=== PATIENT | male | born 1975 | race Caucasian/White ===

== ENCOUNTER → 2016-08-29 | Outpatient (CLI) | payer OTHER ==
[~2016-08-29] MED LIST: ALBUTEROL MDI
[2016-08-29 13:19] LABS: BASO % 0.3 %; BASO ABS # 0.02 K/uL (0-0.2); COMPLETE YES; HEMATOCRIT 41.7 % (42-52); IG% 0.6 %; LYMPH % 25.7 %; LYMPH ABS # 1.76 K/uL (1.2-3.4); MEAN CELL VOLUME 87.2 fL (80-100); MEAN CORPUSCULAR HEMOGLOBIN 27.8 pg (25-34); MEAN CORPUSCULAR HGB CONC 31.9 g/dl (32-36); MEAN PLATELET VOLUME 9.6 fL (7.4-10.4); NEUT % 65.4 %; PLATELET COUNT 384 K/uL (130-400); RED BLOOD COUNT 4.78 M/uL (4.7-6.1); WHITE BLOOD COUNT 6.84 K/uL (4.8-10.8)
[2016-08-29 15:05] LABS: CALCIUM 9.2 mg/dl (8.5-10.1)
[2016-08-29 15:18] LABS: BLOOD UREA NITROGEN 13 mg/dl (7-18); BUN/CREATININE RATIO 12.1 (10-20); CARBON DIOXIDE 26 mmol/L (21-32); CHLORIDE 107 mmol/L (98-107); GLUCOSE 139 mg/dl (70-99); POTASSIUM 4.2 mmol/L (3.5-5.1); SODIUM 141 mmol/L (136-145); URIC ACID 7.8 mg/dl (2.6-7.2)
== END | disposition home or self-care (01) ==
LOC: C.LABBC 11:06
PROVIDERS: ATTEND Family Medicine
DX: M10.9 Gout, unspecified (principal)

== ENCOUNTER 2021-02-04 11:14 | Inpatient (IN) ==
--- NOTE | 2021-02-04 13:28 | Emergency Department Note ---
Impression & Plan Chronic ulcer of right foot, Cellulitis of right foot, Acute osteomyelitis of right foot ED Provider Note CHIEF COMPLAINT: Right foot infection HISTORY OF PRESENTING ILLNESS: This is a 45-year-old male who presents to the emergency department by private vehicle with complaint of a right foot infection. 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 For the past 2-3 days, he has started to have increased pain, swelling, and redness of the foot extending up towards his ankle. His doctor sent him in for an MRI of the foot with concerns for osteomyelitis and also cellulitis. The patient is not diabetic. He states he believes the wound on his foot is from the area of rubbing and it just has not ever healed. He denies any fevers or chills. He is not currently on any antibiotics. He denies any chest pain, chest tightness, shortness of breath, back pain, abdominal pain, nausea/vomiting, diarrhea, urinary complaints, or unusual rash. REVIEW OF SYSTEMS: A complete 10 point review of systems was reviewed with the patient with pertinent positives and negatives as per history of present illness. All else were negative. PAST MEDICAL HISTORY: Hypertension, obesity, history of gout SOCIAL HISTORY: Lives at home, he denies tobacco use ALLERGIES: Reviewed in chart and with the patient PHYSICAL EXAM: CONSTITUTIONAL: Pleasant and cooperative. Nontoxic-appearing and in no acute distress. Well appearing and well nourished. HEENT: Normocephalic, atraumatic. NECK: Supple, full active range of motion without discomfort. RESPIRATORY: Clear to auscultation bilaterally with no wheezing, crackles, rhonchi or stridor. Equal expansion bilaterally. CARDIOVASCULAR: Regular rate and rhythm with no murmurs, rubs or gallops. Normal peripheral perfusion. No edema. GASTROINTESTINAL: Soft, nontender, nondistended. Obese abdomen. No palpable masses or HSM. Bowel sounds present in all quadrants. MUSCULOSKELETAL: Diffuse swelling of the right foot and ankle. No swelling or tenderness extending into the calf, no pain of the knee or hip. INTEGUMENTARY: There is a deep ulcerated wound on the lateral-plantar aspect of the right foot at the base of the fifth toe. There is foul-smelling yellowish discharge from the wound. The entire dorsal aspect of the foot is edematous, erythematous, and warm to the touch. Tender to palpation throughout. Swelling does extend up through the ankle, but there is not tenderness of the ankle joint. No rashes noted. NEUROLOGIC: Alert and oriented X 4 with normal affect. Normal strength and sensation in all 4 extremities. Normal speech. Normal gait observed. ED COURSE AND MEDICAL DECISION MAKING: CC: Patient presenting with complaint of right foot infection DIFFERENTIAL DIAGNOSIS: Includes, but not limited to cellulitis, abscess, MRSA infection, osteomyelitis, joint infection, necrotizing fasciitis, dermatitis, allergic reaction, as well as other pathologies. INTERPRETATION OF LABS: No leukocytosis, mild anemia, elevated platelets, no significant electrolyte abnormalities, normal renal function, normal liver enzymes. ESR and CRP are elevated. Lactate within normal limits. Coagulation factors within normal limits. SARS-CoV-2 PCR negative. MEDICATION RECONCILIATION: I attest that I have personally reviewed the patient's current medication list. INITIAL VITAL SIGNS REVIEW: I reviewed the patient's initial vital signs and interpret them as follows: T: Afebrile; BP: Normotensive; HR: Within normal limits; RR: Within normal limits; Pulse Ox: Within normal limits on room air. MDM SUMMARY: Patient was evaluated at bedside, history and physical exam performed. Patient is alert and oriented, in no acute distress, resting calmly in stretcher. He is afebrile and nontoxic-appearing. Right foot and ankle are diffusely swollen, erythematous, tender to palpation, and warm to the touch. There is an ulcerated wound on the lateral aspect of the foot with foul-smelling discharge. Cardiac monitoring: An order was placed for continuous cardiac monitoring. The monitor shows a rate of 82 bpm with normal sinus rhythm. MRI imaging of the right foot was performed earlier today, the results of this were reviewed noting findings consistent with osteomyelitis of the head of the fifth metatarsal and base of the fifth toe proximal phalanx as well as a loculated fluid collection and joint effusion of the fifth MTP joint concerning for septic arthritis and abscess. Orders were placed for labs including inflammatory markers, lactate, blood cultures x2, surface wound culture was collected from the ulcer, and orders were placed for IV vancomycin and cefepime to treat for osteomyelitis infection. The patient was offered something for pain, he declines at this time. Patient discussed with Dr. Mely, who agrees with my assessment, plan, and disposition. Labs reviewed as above, no leukocytosis and lactate is within normal limits. Inflammatory markers are elevated. I spoke on the phone with Dr. Henry, orthopedic surgeon, who recommended admitting the patient to medicine for management and agrees to evaluate available for consult. He agreed with starting IV antibiotic treatment at this time. I spoke on the phone with Dr. Bianchi, [facility] Hospitalist, who agrees to evaluate the patient for admission. Additional coverage with IV Flagyl was ordered per his request. Patient reassessed multiple times throughout ED stay, he has remained hemodynamically stable and afebrile, and continues to decline anything for pain. Patient and his were updated on all results and plan for admission, all questions were answered to the best my ability and the patient was agreeable to this plan. The patient was stable at time of admission. The chart was completed utilizing [employer] Speech voice recognition software. Grammatical errors, random word insertions, pronoun errors, and incomplete sentences are an occasional consequence of this system due to software limitations, ambient noise, and hardware issues. Any formal questions or concerns about the content, text, or information contained within the body of this dictation should be directly addressed to the nurse practitioner for clarification. 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 marital status: Current Living Situation: Spouse current occupational status: employed Feels Safe at Home: Yes Childhood Exposure to Second-Hand Smoke: Yes caffeine: Yes Dental Care, Regularly: Yes Physical Activity Frequency: Does not Exercise Seatbelt Use: always Sunscreen Use: Yes Do you think of yourself as: straight/heterosexual Allergies Allergies Allergy/AdvReac Type Severity Reaction Status Date / Time azithromycin Allergy Intermediate HIVES Verified 02/04/21 15:10 Sulfa (Sulfonamide Allergy Intermediate HIVES Verified 02/04/21 15:10 Antibiotics) Home Meds Previous Rx's Medication Instructions Recorded allopurinol 100 mg tablet 100 mg PO DAILY #30 tab 05/03/20 losartan 25 mg tablet 25 mg PO DAILY #90 tab 11/10/20 indomethacin 25 mg capsule 25 mg PO TID PRN #30 cap 01/13/21 Results & Data (ED) Vital Signs Vital Signs - 24 hr 02/04/21 11:26 02/04/21 13:20 02/04/21 13:22 Temperature 37.7 C H 37.2 C Temperature Source Oral Oral Pulse Rate 90 Pulse Rate [Left Finger] 72 Pulse Rate from SpO2 Sensor Respiratory Rate 18 13 Respiratory Effort / Characteristics Non-Labored Blood Pressure 123/71 Blood Pressure [Left Arm] 152/89 H Blood Pressure Mean 88 Blood Pressure Mean [Left Arm] 110 Pulse Oximetry 97 97 Oxygen Delivery Method Room Air Sepsis Recent Fever Within 48 Hours No Sepsis New/Unexplained Change in Mental Status No Sepsis Action Taken by Nursing No Action Required 02/04/21 14:57 Temperature Temperature Source Pulse Rate 71 Pulse Rate [Left Finger] Pulse Rate from SpO2 Sensor 71 Respiratory Rate 19 Respiratory Effort / Characteristics Blood Pressure 155/111 H Blood Pressure [Left Arm] Blood Pressure Mean 125 Blood Pressure Mean [Left Arm] Pulse Oximetry 98 Oxygen Delivery Method Sepsis Recent Fever Within 48 Hours Sepsis New/Unexplained Change in Mental Status Sepsis Action Taken by Nursing Laboratory Data Result diagrams: 02/04/21 13:47 02/04/21 13:47 Lab Results 02/04/21 02/04/21 02/04/21 Range/Units 13:47 13:47 13:47 WBC 8.62 (4.8-10.8) K/uL RBC 4.72 (4.7-6.1) M/uL Hgb 12.6 L (14.0-18.0) g/dL Hct 39.3 L (42-52) % MCV 83.3 (80-100) fL MCH 26.7 (25-34) pg MCHC 32.1 (32-36) g/dL RDW Std Deviation 42.2 (36.4-46.3) fL RDW Coeff of Sharda 13.8 (11.5-14.5) % Plt Count 494 H (130-400) K/uL MPV 8.7 (7.4-10.4) fL Immature Gran % (Auto) 0.2 % Neut % (Auto) 68.0 % Lymph % (Auto) 23.0 % Monroe % (Auto) 7.7 % Eos % (Auto) 0.8 % Baso % (Auto) 0.3 % Neut # (Auto) 5.86 (1.4-6.5) K/uL Lymph # (Auto) 1.98 (1.2-3.4) K/uL Monroe # (Auto) 0.66 H (0.11-0.59) K/uL Eos # (Auto) 0.07 (0-0.5) K/uL Baso # (Auto) 0.03 (0-0.2) K/uL Immature Gran # (Auto) 0.02 (0.00-0.02) K/uL ESR (0-15) mm/hr PT 10.1 (9.0-12.0) Seconds INR 1.0 (0.9-1.1) Sodium 137 (136-145) mmol/L Potassium 3.9 (3.5-5.1) mmol/L Chloride 105 (98-107) mmol/L Carbon Dioxide 26 (21-32) mmol/L Anion Gap 6.0 (3-11) BUN 14 (7-18) mg/dl Creatinine 1.02 (0.6-1.4) mg/dl Est Cr Clr Drug Dosing 141.4 ml/min Est GFR ( Amer) 103.1 ml/min Est GFR (Non-Af Amer) 89.0 ml/min BUN/Creatinine Ratio 13.2 (10-20) Glucose 96 (70-99) mg/dl Lactate (0.4-2.0) mmol/L Calcium 9.2 (8.5-10.1) mg/dl Total Bilirubin 0.5 (0.2-1) mg/dl AST 12 L (15-37) U/L ALT 24 (12-78) U/L Alkaline Phosphatase 63 (45-117) U/L C-Reactive Protein 6.07 H (0-0.29) mg/dl Total Protein 8.0 (6.4-8.2) gm/dl Albumin 3.4 (3.4-5.0) gm/dl Globulin 4.6 H (2.5-4.0) gm/dl Albumin/Globulin Ratio 0.7 L (0.9-2) COVID-19 Eval Order SARS-CoV-2 (PCR) (Negative) 02/04/21 02/04/21 02/04/21 Range/Units 13:47 13:47 14:18 WBC (4.8-10.8) K/uL RBC (4.7-6.1) M/uL Hgb (14.0-18.0) g/dL Hct (42-52) % MCV (80-100) fL MCH (25-34) pg MCHC (32-36) g/dL RDW Std Deviation (36.4-46.3) fL RDW Coeff of Sharda (11.5-14.5) % Plt Count (130-400) K/uL MPV (7.4-10.4) fL Immature Gran % (Auto) % Neut % (Auto) % Lymph % (Auto) % Monroe % (Auto) % Eos % (Auto) % Baso % (Auto) % Neut # (Auto) (1.4-6.5) K/uL Lymph # (Auto) (1.2-3.4) K/uL Monroe # (Auto) (0.11-0.59) K/uL Eos # (Auto) (0-0.5) K/uL Baso # (Auto) (0-0.2) K/uL Immature Gran # (Auto) (0.00-0.02) K/uL ESR 74 H (0-15) mm/hr PT (9.0-12.0) Seconds INR (0.9-1.1) Sodium (136-145) mmol/L Potassium (3.5-5.1) mmol/L Chloride (98-107) mmol/L Carbon Dioxide (21-32) mmol/L Anion Gap (3-11) BUN (7-18) mg/dl Creatinine (0.6-1.4) mg/dl Est Cr Clr Drug Dosing ml/min Est GFR ( Amer) ml/min Est GFR (Non-Af Amer) ml/min BUN/Creatinine Ratio (10-20) Glucose (70-99) mg/dl Lactate 0.9 (0.4-2.0) mmol/L Calcium (8.5-10.1) mg/dl Total Bilirubin (0.2-1) mg/dl AST (15-37) U/L ALT (12-78) U/L Alkaline Phosphatase (45-117) U/L C-Reactive Protein (0-0.29) mg/dl Total Protein (6.4-8.2) gm/dl Albumin (3.4-5.0) gm/dl Globulin (2.5-4.0) gm/dl Albumin/Globulin Ratio (0.9-2) COVID-19 Eval Order Covid19 at [facility] SARS-CoV-2 (PCR) (Negative) 02/04/21 Range/Units 14:18 WBC (4.8-10.8) K/uL RBC (4.7-6.1) M/uL Hgb (14.0-18.0) g/dL Hct (42-52) % MCV (80-100) fL MCH (25-34) pg MCHC (32-36) g/dL RDW Std Deviation (36.4-46.3) fL RDW Coeff of Sharda (11.5-14.5) % Plt Count (130-400) K/uL MPV (7.4-10.4) fL Immature Gran % (Auto) % Neut % (Auto) % Lymph % (Auto) % Monroe % (Auto) % Eos % (Auto) % Baso % (Auto) % Neut # (Auto) (1.4-6.5) K/uL Lymph # (Auto) (1.2-3.4) K/uL Monroe # (Auto) (0.11-0.59) K/uL Eos # (Auto) (0-0.5) K/uL Baso # (Auto) (0-0.2) K/uL Immature Gran # (Auto) (0.00-0.02) K/uL ESR (0-15) mm/hr PT (9.0-12.0) Seconds INR (0.9-1.1) Sodium (136-145) mmol/L Potassium (3.5-5.1) mmol/L Chloride (98-107) mmol/L Carbon Dioxide (21-32) mmol/L Anion Gap (3-11) BUN (7-18) mg/dl Creatinine (0.6-1.4) mg/dl Est Cr Clr Drug Dosing ml/min Est GFR ( Amer) ml/min Est GFR (Non-Af Amer) ml/min BUN/Creatinine Ratio (10-20) Glucose (70-99) mg/dl Lactate (0.4-2.0) mmol/L Calcium (8.5-10.1) mg/dl Total Bilirubin (0.2-1) mg/dl AST (15-37) U/L ALT (12-78) U/L Alkaline Phosphatase (45-117) U/L C-Reactive Protein (0-0.29) mg/dl Total Protein (6.4-8.2) gm/dl Albumin (3.4-5.0) gm/dl Globulin (2.5-4.0) gm/dl Albumin/Globulin Ratio (0.9-2) COVID-19 Eval Order SARS-CoV-2 (PCR) NEGATIVE (Negative) Administered Medications Vancomycin HCl 2,750 mg/ (Sodium Chloride) 555 mls @ 200 mls/hr IV NOW ONE Stop: 02/04/21 16:35 Last Admin: 02/04/21 14:55 Dose: 200 mls/hr Documented by: [id number] Discontinued Medications Cefepime HCl (Maxipime) 2,000 mg in 20 mls @ 5 mls/min IV NOW STA; Protocol Stop: 02/04/21 13:52 Last Admin: 02/04/21 14:18 Dose: 5 mls/min Documented by: [id number] Metronidazole (Flagyl) 500 mg in 100 mls @ 100 mls/hr IV NOW STA Stop: 02/04/21 16:01 Last Admin: 02/04/21 15:42 Dose: 100 mls/hr Documented by: [id number] Discharge Plan Visit Data Chief Complaint: Foot Injury/Pain Stated Complaint: RIGHT FOOT PAIN, POSSIBLY INFECTED ED Provider: Harsha Boone ED Midlevel Provider: Blanquita Sheth Discharge Problem: Chronic ulcer of right foot, Cellulitis of right foot, Acute osteomyelitis of right foot Patient Disposition: Admitted As Inpatient Condition: Good Forms Stand Alone Forms: My [facility], Virtual Emergency Department, Important Visit Information Prescriptions Prescriptions: No Action indomethacin 25 mg capsule 25 mg PO TID PRN (Reason: gout) Qty: 30 RF: 0 losartan 25 mg tablet 25 mg PO DAILY Qty: 90 RF: 3 allopurinol 100 mg tablet 100 mg PO DAILY Qty: 30 RF: 2 Referrals Referrals: Jesse Green DO [Primary Care Provider] - Discharge Problem: Chronic ulcer of right foot Qualifiers: Non-pressure ulcer stage: with necrosis of bone Qualified Code(s): L97.514 - Non-pressure chronic ulcer of other part of right foot with necrosis of bone
[2021-02-04] MEDS ORDERED: VANCOMYCIN CONSULT ACTIVE PRN (13:49)
[2021-02-04] MEDS ORDERED: VANCOMYCIN HCL 2,750 MG in SODIUM CHLORIDE 0.9% 500 ML IV ONE (13:49)
[2021-02-04] MEDS ORDERED: CEFEPIME 2,000 MG/20 ML VIAL IV STA (13:49)
[2021-02-04 14:00] LABS: Basophils # (auto) 0.03 K/uL (0-0.2); Basophils % (auto) 0.3 %; Eosinophils # (auto) 0.07 K/uL (0-0.5); Eosinophils % (auto) 0.8 %; Hematocrit (blood only) 39.3 % (42-52); Hemoglobin 12.6 g/dL (14.0-18.0); Immature Granulocytes # (auto) 0.02 K/uL (0.00-0.02); Immature Granulocytes % (auto) 0.2 %; Lymphocytes # (auto) 1.98 K/uL (1.2-3.4); Mean Corpuscular Hemoglobin 26.7 pg (25-34); Mean Corpuscular Hgb Conc 32.1 g/dL (32-36); Mean Corpuscular Volume 83.3 fL (80-100); Mean Platelet Volume 8.7 fL (7.4-10.4); Monocytes # (auto) 0.66 K/uL (0.11-0.59); Monocytes % (auto) 7.7 %; Neutrophils # (auto) 5.86 K/uL (1.4-6.5); Platelet Count 494 K/uL (130-400); RDW Coefficient of Variation 13.8 % (11.5-14.5); RDW Standard Deviation 42.2 fL (36.4-46.3); Red Blood Count 4.72 M/uL (4.7-6.1); White Blood Count 8.62 K/uL (4.8-10.8)
[2021-02-04 14:11] LABS: Prothrombin Time 10.1 Seconds (9.0-12.0)
[2021-02-04 14:20] LABS: Albumin Level 3.4 gm/dl (3.4-5.0); BUN Creatinine Ratio 13.2 (10-20); C Reactive Protein 6.07 mg/dl (0-0.29); Calcium 9.2 mg/dl (8.5-10.1); Creatinine Clr Calc Pharmacy 141.4 ml/min; Est GFR (African American) 103.1 ml/min; Potassium 3.9 mmol/L (3.5-5.1)
[2021-02-04 14:22] LABS: Albumin Globulin Ratio 0.7 (0.9-2); Bilirubin,Total 0.5 mg/dl (0.2-1); Globulin 4.6 gm/dl (2.5-4.0)
--- NOTE | 2021-02-04 14:58 | History & Physical Report ---
Date of Service February 04, 2021 Assessment & Plan (1) Acute osteomyelitis of right foot: Plan: Antonio Miller is a 45-year-old male with a chronic right lateral foot ulceration and wound over the last year which has acutely worsened and who has evidence of osteomyelitis and septic arthritis on MRI. MRI:Interval partial destruction at the head of the fifth metatarsal and base of the fifth toe proximal phalanx consistent with an osteomyelitis. There is also a 26 x 17 x 11 mm loculated fluid collections/joint effusion at the fifth MTP joint. This is consistent with an abscess/septic arthritis. Surgical consultation recommended. Subcutaneous edema seen throughout the foot which could be secondary to a cellulitis. There is also edema seen within the dorsal and plantar muscles of the foot which could represent extension of the suspected infection. Anticipate patient will require surgical source control followed by 6 to 8 weeks of antibiotics if concern for residual osteo No leukocytosis Hemoglobin 12.6 Platelet count 494, likely reactive Electrolytes normal, creatinine normal at baseline and normal on admission CRP 6.07 Covid pending Patient afebrile Received empiric vancomycin/cefepime in emergency department Wound culture pending Blood cultures pending Prior right foot cultures positive for group G beta strep, anaerobic gram- negative bacilli Given prior culture positive for anaerobes will add Flagyl coverage on admission Orthopedics consulted, case was discussed with orthopedics by ER prior to admission. Will admit to medicine. (2) Septic arthritis of right foot: Plan: See above (3) Cellulitis of right foot: Plan: See above (4) Hypertension: Plan: Hypertension Hold losartan 25 mg p.o. daily in anticipation of potential surgical washout/intervention of septic arthritis (5) Prediabetes: Plan: Patient with recent A1c in the prediabetic range Glucose checks AC/at bedtime SSI goal [id number] during admission (6) Gout: Plan: Gout Patient no longer on allopurinol, gout improved with dietary intervention Plan: DVT prophylaxis: Heparin Diet: N.p.o. pending surgical evaluation Disposition: Medical/surgical CODE STATUS: Full code History of Present Illness Primary Care Provider: Jesse Green DO Antonio is a 45-year-old male with a past medical history of peripheral neuropathy, hypertension, metabolic syndrome, prediabetes, and gout who presented to [facility] with concern for a right foot infection. He has a chronic right foot wound followed by podiatry. In the last 3 days he has had increased pain, swelling, and redness of the foot extending to the ankle. He was forwarded to [facility] for additional care for concern of osteomyelitis. Right foot infection right foot cellulitis with osteomyelitis and septic arthritis Antonio is here for worsenin g his R food seems like infected. Swollen and more pain at his R little toe. No fevers or chills. No night sweats. No nausea, vomiting, diarrhea, constipation, abdominal pain. Appetite OK. Has had a poorly healing ulcer for ~1 year followed jenny Ocampo. Unclear what caused the unlcer to develop at first, was on a pressure point on his foot which had rubbed wiht his shoes. Pt reports he is not diabetic. Medical History: Reviewed Medications: Reviewed. Has not taken any medications today. 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 Was previously on allopurinol, has not taken recently. Takes indicin PRN for flares, last flare was ~1 month ago and lasted 1-2 days. Surgical History: Reviewed Allergies: Reviewed, updated. HIVES to azithro/sulfa. Social History: NO tobacco products, no EtoH, no medical marijuana, no recreational drugs. Code Status: FULL CODE Allergies Allergy/AdvReac Type Severity Reaction Status Date / Time azithromycin Allergy Intermediate HIVES Verified 02/04/21 15:10 Sulfa (Sulfonamide Allergy Intermediate HIVES Verified 02/04/21 15:10 Antibiotics) Home Medications Medication Instructions Recorded Confirmed Type allopurinol 100 mg tablet 100 mg PO DAILY #30 tab 05/03/20 02/04/21 Rx losartan 25 mg tablet 25 mg PO DAILY #90 tab 11/10/20 02/04/21 Rx indomethacin 25 mg capsule 25 mg PO TID PRN #30 cap 01/13/21 02/04/21 Rx Past Med/Surg History Medical History Gout Kidney stone (~1997) Obesity Peripheral neuropathy Surgical History H/O lithotripsy (~1997) Family History Mother Diabetes Father Diabetes Kidney stones Myocardial infarction Grandfather (Paternal) Myocardial infarction Denies family history of Ovarian cancer Prostate cancer Breast cancer Lung cancer Colorectal cancer Social History Smoking Status: Never smoker Second Hand Exposure: No; Hx Alcohol Use: No Hx Substance Use: No Preferred Language: Divehi Communication Ability: Effective Visual Impairment: Limited Hearing Ability: Normal 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 NAD. Cooperative. HEENT: Atraumatic, normocephalic. Visual acuity and hearing grossly intact Pulm: CTAB A&P. -wheezes, -rales, -rhonchi. Symmetrical chest rise. No increase work of breathing. No respiratory distress. Cardiac: RRR, -mrg. Radial pulses intact and symmetrical. Abdominal: Nontender, nondistended, soft. BS present. 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 Right foot with lateral 5th MCP ulceration with some purulence and discharge, pain is induced in right lateral forefoot on 5th digit resisted flexion and extension. Erythema of the right lateral foot extending to the ankle and midline foot. Cap refill brisk bilaterally. Left foot without ulcerations. PT pulse intact and symmetrical bilaterally. Results & Data Results & Data ([facility]) Vital Signs (Past 12 Hours) Vital Signs Temp Pulse Pulse Resp BP BP Pulse Ox 02/04/21 13:22 37.2 C 72 13 152/89 H 97 02/04/21 11:26 90 18 123/71 97 PG Care Time/CCT Total # of Minutes Spent Total Time Spent with Patient: Total time spent is greater than 50% in coordination of care (as documented) at patient's floor/unit and/or counseling patient: Coding Level of Care Code 93240 Initial Inpt Care Lvl 3 Diagnoses Acute osteomyelitis of right foot M86.171 Septic arthritis of right foot M00.9 Cellulitis of right foot L03.115 Hypertension I10 Prediabetes R73.03 Gout M10.9
[2021-02-04] MEDS ORDERED: metroNIDAZOLE 500 MG/100 ML BAG IV STA (15:02)
[2021-02-04] MEDS ORDERED: HYDROmorphone INJ 0.5 MG/0.5 ML SYR IV PRN (15:45)
[2021-02-04] MEDS ORDERED: DEXTROSE 50% 50 ML SYRINGE IV PRN (19:36)
[2021-02-04] MEDS ORDERED: CARBOHYDRATES FOR HYPOGLYCEMIA PO PRN (19:36)
[2021-02-04] MEDS ORDERED: INSULIN ASPART 100 UNITS/ML 3 ML PEN SC SCH (19:36)
[2021-02-04] MEDS ORDERED: GLUCOSE 10 TABS/TUBE PO PRN (19:36)
[2021-02-04] MEDS ORDERED: GLUCOSE 40% GEL 15 GM TUBE PO PRN (19:36)
[2021-02-04] MEDS ORDERED: GLUCAGON FOR INJ 1 MG VIAL SQ PRN (19:36)
[2021-02-04] MEDS ORDERED: Nursing to Pharmacy Communication SCH (20:15)
[2021-02-04] MEDS: NSS + 20MEQ KCL 20 MEQ/1,000 ML BAG IV SCH (20:46)
[2021-02-04] MEDS: DAPTOmycin 650 MG in SYRINGE 0 ML IV SCH (21:58)
[2021-02-04] MEDS: metroNIDAZOLE 500 MG/100 ML BAG IV SCH (23:51)
[2021-02-05] MEDS: INSULIN ASPART 100 UNITS/ML 3 ML PEN SC SCH ×4 (00:09→17:59)
[2021-02-05] MEDS: CEFEPIME 2,000 MG in SYRINGE 0 ML IV SCH ×2 (01:54→13:46)
[2021-02-05] MEDS: NSS + 20MEQ KCL 20 MEQ/1,000 ML BAG IV SCH ×3 (04:06→20:20)
[2021-02-05 07:26] LABS: Basophils # (auto) 0.05 K/uL (0-0.2); Basophils % (auto) 0.8 %; Eosinophils # (auto) 0.09 K/uL (0-0.5); Eosinophils % (auto) 1.4 %; Hematocrit (blood only) 36.3 % (42-52); Hemoglobin 11.2 g/dL (14.0-18.0); Immature Granulocytes # (auto) 0.02 K/uL (0.00-0.02); Immature Granulocytes % (auto) 0.3 %; Lymphocytes # (auto) 1.85 K/uL (1.2-3.4); Lymphocytes % (auto) 28.2 %; Mean Corpuscular Hemoglobin 26.5 pg (25-34); Mean Corpuscular Hgb Conc 30.9 g/dL (32-36); Mean Platelet Volume 8.7 fL (7.4-10.4); Monocytes # (auto) 0.58 K/uL (0.11-0.59); Monocytes % (auto) 8.9 %; Neutrophils # (auto) 3.96 K/uL (1.4-6.5); Neutrophils % (auto) 60.4 %; Platelet Count 385 K/uL (130-400); RDW Coefficient of Variation 13.9 % (11.5-14.5); Red Blood Count 4.22 M/uL (4.7-6.1); White Blood Count 6.55 K/uL (4.8-10.8)
[2021-02-05 07:50] LABS: BUN Creatinine Ratio 11.4 (10-20); Calcium 8.5 mg/dl (8.5-10.1); Creatinine Clr Calc Pharmacy 132.5 ml/min; Est GFR (African American) 96.2 ml/min; Potassium 4.3 mmol/L (3.5-5.1)
[2021-02-05 07:51] LABS: C Reactive Protein 3.17 mg/dl (0-0.29)
[2021-02-05] MEDS: metroNIDAZOLE 500 MG/100 ML BAG IV SCH ×2 (08:00→16:05)
[2021-02-05] MEDS: HYDROmorphone INJ 1 MG/ML SYRINGE IV PRN (16:11)
--- NOTE | 2021-02-05 16:11 | Hospitalist Progress Note ---
Date of Service February 05, 2021 Assessment & Plan (1) Acute osteomyelitis of right foot: Plan: Antonio Miller is a 45-year-old male with a chronic right lateral foot ulceration and wound over the last year which has acutely worsened and who has evidence of osteomyelitis and septic arthritis on MRI. MRI:Interval partial destruction at the head of the fifth metatarsal and base of the fifth toe proximal phalanx consistent with an osteomyelitis. There is also a 26 x 17 x 11 mm loculated fluid collections/joint effusion at the fifth MTP joint. This is consistent with an abscess/septic arthritis. Surgical consultation recommended. Subcutaneous edema seen throughout the foot which could be secondary to a cellulitis. There is also edema seen within the dorsal and plantar muscles of the foot which could represent extension of the suspected infection. Anticipate patient will require surgical source control followed by 6 to 8 weeks of antibiotics if concern for residual osteo CRP 6.07; afebrile - Continue Cefepime 2 g IV BID; Daptomycin IV daily; and Flagyl 500 mg IV Q8H - Wound culture with pinpoint growth - plan for Cx in OR -- Prior R foot cx with group G beta strep and anaerobic gram neg bacilli - Ortho following - discussed with Dr. Henry - plan for OR tomorrow (2) Septic arthritis of right foot: Plan: See above (3) Cellulitis of right foot: Plan: See above (4) Hypertension: Plan: Hold losartan 25 mg daily in anticipation of potential surgical washout/intervention of septic arthritis (5) Prediabetes: Plan: - A1c - 6.2 - Continue SSI Plan: DVT prophylaxis: Likely can add Heparin pending post-op course To OR tomorrow Admission and Anticipated Discharge Date Admission Date: February 04, 2021 Subjective Reports feeling well today. Erythema is reducing from marked area. Reports minimal pain. Discussed with Dr. Henry. Plan for OR tomorrow. Updated at bedside. Review of Systems Review of Systems: REVIEW OF SYSTEMS General/Constitutional: Denies fever/chills ENT: Denies sore throat, trouble swallowing Cardiovascular: Denies chest pain, palpitations, edema Respiratory: Denies cough, SOB, wheezing GI: Denies nausea, vomiting, abdominal pain, constipation, diarrhea : Denies dysuria Musculoskeletal: + R foot pain (controlled) Neurologic: Denies dizziness/lightheadedness Skin: + unhealing wound to plantar aspect of R foot Physical Exam Physical Exam: PHYSICAL EXAM General Appearance: WDWN in NAD who is A&O x 3 HEENT: Head is normocephalic/atraumatic; Hearing grossly intact; Mucous membranes moist Neck: Supple; Trachea midline; Neg JVD Heart: RRR with no M/G/R Lungs: CTA in all lung kline bilaterally; Respirations unlabored; Neg accessory muscle use Abdomen: Soft, non-tender, non-distended; Positive BS x 4 quadrants Extremities: Neg cyanosis Neurological: Speech clear; Gross motor/sensory function intact; Neg focal neurologic deficits Psychiatric: Appropriate mood/affect Skin: Erythema of the right lateral foot extending to the ankle and midline foot with some reduction from delineated line; thickened toenails Results & Data Results & Data ([facility]) Vital Signs (Past 12 Hours) Vital Signs Temp Pulse Resp BP Pulse Ox 02/05/21 14:48 37.1 C 76 16 149/82 H 94 02/05/21 07:19 36.8 C 72 16 115/66 94 PG Care Time/CCT Total # of Minutes Spent Total Time Spent with Patient: Total time spent is greater than 50% in coordination of care (as documented) at patient's floor/unit and/or counseling patient: Coding Level of Care Code 50179 Subseq Hosp Care Lvl 3 Diagnoses Acute osteomyelitis of right foot M86.171 Septic arthritis of right foot M00.9 Cellulitis of right foot L03.115 Hypertension I10 Prediabetes R73.03
--- NOTE | 2021-02-05 21:53 | Consultation Report ---
DATE OF CONSULTATION: 02/05/2021 PERTINENT HISTORY: This is a 45-year-old gentleman seen at the request of the medical team for right foot ulceration with septic fifth metatarsophalangeal joint. Apparently, this 45-year-old gentleman who has been under the care of a local assembler watch train, Dr. Hunter. The patient was under the care of c onservative management, failed conservative management and then had worsening pain, greater swelling, redness of the foot extending to the ankle. He was sent to the Emergency Department by the podiatri . Currently net total for management on this ulcer has been approximately a year. Apparently, the patient is not officially diabetic. PAST MEDICAL HISTORY: Gout, kidney stones in 1997, obesity, peripheral neuropathy. PAST SURGICAL HISTORY: Lithotripsy in 1997. ALLERGIES: AZITHROMYCIN, HIVES. SULFA, HIVES. MEDICATIONS: Allopurinol 100 mg daily, losartan 25 mg daily, indomethacin 25 mg p.o. t.i.d. p.r.n. FAMILY HISTORY: The patient's mother is diabetic. Father is diabetic. SOCIAL HISTORY: Denies tobacco, alcohol or drug use. He is . 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 PHYSICAL EXAMINATION: GENERAL: The physical exam demonstrates A and O x3. Speech clear and fluent. Affect is appropriate . He is present with his present at bedside. He is lying supine in hospital room bed. No acut e distress. EXTREMITIES: Examination of the right foot demonstrates scant hair growth bilaterally. Dorsalis ped is and posterior tibial pulse 2/4. Removal of the dressing demonstrates a 2.5 cm diameter full-thickn ess ulceration under the fifth metatarsal, purulent discharge is expressed with palpation. Slight fo ul odor. A wound slough and erythema is noted. Granulation tissue is present. There is an open sin us tract of the fifth metatarsal head. There is edema on the right foot, ankle, and lower extremity c ompared to the left. This is a 2/4 edema on the right compared to no significant edema on the left. Radiographs and MRI review demonstrate destruction of the head of the fifth metatarsal base fifth toe proximal phalanx with osteomyelitis 26 x 17 x 11 mm loculated fluid collection adjacent to the fifth metatarsophalangeal joint. Subcutaneous edema throughout the foot. Local cellulitis. Edema within the dorsal and plantar interosseous muscles of the foot. LABORATORY DATA: Review demonstrate hemoglobin 12. CRP 6.07. Likely diabetic/prediabetic based on laboratories. IMPRESSION: 1. Right fifth metatarsophalangeal joint septic arthritis. 2. Osteomyelitis, fifth metatarsal. 3. Fifth proximal phalanx osteomyelitis. 4. Abscess, right foot. 5. Ulcer, plantar fifth metatarsal 2.5 cm diameter with a sinus tract. RECOMMENDATION: For resection arthroplasty of the fifth metatarsophalangeal joint. Lavage of the fif th metatarsophalangeal joint. Clearance of abscess, right forefoot, possible tenosynovectomy extensor fifth toe and tenosynovectomy flexor fifth toe and debridement of the ulceration on the right foot. Discussed the care plan with the patient and his present. He is in agreement and he will be n. p.o. after midnight. I also discussed care plan with the medical team. We will recommend also local wound care with dressing change today. Thank you for the opportunity to consult in the care of this patient. Job ID: [id number]
[2021-02-05] MEDS: DAPTOmycin 650 MG in SYRINGE 0 ML IV SCH (22:28)
[2021-02-06] MEDS: INSULIN ASPART 100 UNITS/ML 3 ML PEN SC SCH ×5 (00:57→22:42)
[2021-02-06] MEDS: metroNIDAZOLE 500 MG/100 ML BAG IV SCH ×3 (00:59→17:16)
[2021-02-06] MEDS: CEFEPIME 2,000 MG in SYRINGE 0 ML IV SCH ×2 (01:34→13:44)
[2021-02-06] MEDS ORDERED: BUPIVACAINE 0.5 % 5 MG/1 ML MPF 30ML VIAL ONE (07:28)
[2021-02-06] MEDS: NSS + 20MEQ KCL 20 MEQ/1,000 ML BAG IV SCH ×2 (08:55→22:58)
--- NOTE | 2021-02-06 08:56 | Hospitalist Progress Note ---
Date of Service February 06, 2021 Assessment & Plan (1) Acute osteomyelitis of right foot: Plan: Antonio Miller is a 45-year-old male with a chronic right lateral foot ulceration and wound over the last year which has acutely worsened and who has evidence of osteomyelitis and septic arthritis on MRI. MRI:Interval partial destruction at the head of the fifth metatarsal and base of the fifth toe proximal phalanx consistent with an osteomyelitis. There is also a 26 x 17 x 11 mm loculated fluid collections/joint effusion at the fifth MTP joint. This is consistent with an abscess/septic arthritis. Surgical consultation recommended. Subcutaneous edema seen throughout the foot which could be secondary to a cellulitis. There is also edema seen within the dorsal and plantar muscles of the foot which could represent extension of the suspected infection. To OR on 02/06 for surgical source control. May need 6 to 8 weeks of antibiotics if concern for residual osteo? CRP 6.07 on admission; afebrile - Continue Cefepime 2 g IV BID; Daptomycin IV daily; and Flagyl 500 mg IV Q8H - pending surgical cultures could likely de-escalate Abx and may need consideration for ID consultation when cultures populate - Wound culture with pinpoint growth - plan for Cx in OR -- Prior R foot cx with group G beta strep and anaerobic gram neg bacilli - Ortho following - plan for OR today -- Plan for resection arthroplasty of the 5th metatarsophalangeal joint; lavage of the 5th metatarsophalangeal joint; abscess clearance, right forefoot and possible tenosynovectomy extensor 5th toe and tenosynovectomy flexor 5th toe and debridement of the ulceration on the R foot (2) Septic arthritis of right foot: Plan: See above (3) Cellulitis of right foot: Plan: See above (4) Hypertension: Plan: Hold losartan 25 mg daily in anticipation of potential surgical washout/intervention of septic arthritis - If AM labs acceptable can resume tomorrow (5) Prediabetes: Plan: - A1c - 6.2 - Continue SSI - as expected, minimal coverage needed - will monitor for additional needs post-operatively Plan: DVT prophylaxis: Likely can add Heparin pending post-op course - To OR today - Pending surgical cultures for abx de-escalation - maybe 6-8 weeks coverage? - consideration for ID consultation when cultures populate - Do not anticipate home needs other than IV Abx if indicated Admission and Anticipated Discharge Date Admission Date: February 04, 2021 Subjective Reports feeling well today. Some mild pain to the R foot but reports as controlled. Plan for OR today Review of Systems Review of Systems: REVIEW OF SYSTEMS General/Constitutional: Denies fever/chills Cardiovascular: Denies chest pain, palpitations, edema Respiratory: Denies cough, SOB, wheezing GI: Denies nausea, vomiting, abdominal pain, constipation, diarrhea : Denies dysuria Musculoskeletal: + intermittent R foot pain (controlled) Neurologic: Denies dizziness/lightheadedness Skin: + unhealing wound to plantar aspect of R foot Physical Exam Physical Exam: PHYSICAL EXAM General Appearance: WDWN in NAD who is A&O x 3 HEENT: Head is normocephalic/atraumatic; Hearing grossly intact; Mucous membranes moist Neck: Supple; Trachea midline; Neg JVD Heart: RRR with no M/G/R Lungs: CTA in all lung kline bilaterally; Respirations unlabored; Neg accessory muscle use Abdomen: Soft, non-tender, non-distended; Positive BS x 4 quadrants Extremities: Neg cyanosis Neurological: Speech clear; Gross motor/sensory function intact; Neg focal neurologic deficits Psychiatric: Appropriate mood/affect Skin: Erythema of the right lateral foot extending to the ankle and midline foot with some reduction from delineated line and appears more pink today; left dressing in place to wound; minimal erythema of the medial aspect of the ankle (more patchy that is reducing in redness); thickened/yellow toenails Results & Data Results & Data ([facility]) Vital Signs (Past 12 Hours) Vital Signs Temp Pulse Resp BP Pulse Ox 02/06/21 07:43 36.7 C 70 16 146/90 H 95 02/05/21 22:42 36.8 C 72 18 126/74 96 PG Care Time/CCT Total # of Minutes Spent Total Time Spent with Patient: Total time spent is greater than 50% in coordination of care (as documented) at patient's floor/unit and/or counseling patient: Coding Level of Care Code 84505 Subseq Hosp Care Lvl 3 Diagnoses Acute osteomyelitis of right foot M86.171 Septic arthritis of right foot M00.9 Cellulitis of right foot L03.115 Hypertension I10 Prediabetes R73.03
--- NOTE | 2021-02-06 10:24 | History & Physical Bridge Note ---
Date of Service February 06, 2021 History & Physical Bridge Note I have examined the patient, reviewed the History & Physical and in the interval since the performance of the History & Physical I have noted the following changes of clinical significance: no changes noted
[2021-02-06] MEDS ORDERED: LIDOCAINE 2% 2 ML VIAL/AMP(20MG/ML) INFIL ONE (10:26)
[2021-02-06] MEDS ORDERED: PROPOFOL IV EMULSION 10 MG/ML 20 ML VIAL IV ONE ×2 (10:26→11:51)
[2021-02-06] MEDS ORDERED: fentaNYL citrate 100 MCG/2 ML VIAL ONE ×2 (10:26→12:10)
[2021-02-06] MEDS ORDERED: MIDAZOLAM HCL 1 MG/ML 2ML VIAL ONE (10:26)
[2021-02-06] MEDS ORDERED: ONDANSETRON INJ 2 MG/ML 2 ML VIAL ONE (10:26)
--- NOTE | 2021-02-06 10:27 | Anesthesiology Consultation ---
Date of Service February 06, 2021 Assessment & Plan Chart Review Chart Review: Acceptable Risk for Surgery and Patient NOT seen in Pre Admission Testing Consults Requested none ASA ASA4 Proposed Anesthesia Anesthesia Type: General Risk / Benefits Reviewed With: PT / POA / Parent / Guardian, Accepts Plan and Informed Consent Obtained Additional Comments: covid test negative History Surgery Operation Date: 02/06/21 09:00 Proposed Procedures p Hemiarthroplasty Toe(Right) - Vikas Henry, Height/Weight Height: 6 ft 2 in Weight: 145 kg Allergies Allergy/AdvReac Type Severity Reaction Status Date / Time azithromycin Allergy Intermediate HIVES Verified 02/04/21 15:10 Sulfa (Sulfonamide Allergy Intermediate HIVES Verified 02/04/21 15:10 Antibiotics) Medications Home Medications Medication Instructions Recorded Confirmed Last Taken allopurinol 100 mg tablet 100 mg PO DAILY #30 tab 05/03/20 02/04/21 Unknown losartan 25 mg tablet 25 mg PO DAILY #90 tab 11/10/20 02/04/21 Unknown indomethacin 25 mg capsule 25 mg PO TID PRN #30 cap 01/13/21 02/04/21 Unknown Active Medications Generic Name Dose Route Start Last Admin Trade Name Freq PRN Reason Stop Dose Admin Hydromorphone HCl 0.5 mg 02/04/21 15:45 02/04/21 20:26 Hydromorphone Inj 0.5 Mg/0.5 Ml Syr IV 02/18/21 15:44 0.5 mg Q4H PRN Administration Moderate Pain (4,5,6) on NRS Hydromorphone HCl 1 mg 02/04/21 15:45 02/05/21 16:11 Hydromorphone Inj 1 Mg/Ml Syringe IV 02/18/21 15:44 1 mg Q4H PRN Administration Severe Pain (7,8,9,10) on NRS Potassium Chloride/Sodium Chloride 20 meq in 1,000 mls @ 80 mls/hr 02/04/21 20:00 02/06/21 08:55 Normal Saline W/20 Meq Kcl IV 03/06/21 19:59 80 mls/hr .[id number] JAN Administration Cefepime HCl 2,000 mg/ Syringe 20 mls @ 5 mls/min 02/05/21 02:00 02/06/21 01:34 IV 03/18/21 01:59 5 mls/min Q12H JAN Administration Protocol Metronidazole 500 mg in 100 mls @ 100 mls/hr 02/05/21 00:00 02/06/21 08:53 Flagyl IV 03/19/21 00:00 Infused Q8H JAN Infusion Protocol Daptomycin 650 mg/ Syringe 13 mls @ 6.5 mls/min 02/04/21 22:00 02/05/21 22:28 IV 03/18/21 21:59 6.5 mls/min Q24H JAN Administration Protocol Insulin Aspart 0 units 02/05/21 00:00 02/06/21 07:18 Insulin Aspart 100 Units/Ml 3 Ml Pen SC 03/07/21 00:00 Not Given Q6 JAN NPO Date Last Intake of Fluids: 02/05/21 Time Last Intake of Fluids: 23:45 Date Last Intake of Solids: 02/05/21 Time Last Intake of Solids: 18:00 Past Medical History Medical History Gout Kidney stone (~1997) Obesity Peripheral neuropathy Exercise / Class Metabolic Activity III < 4 Walking/Shop/Light housework Past Family History Family History Mother Diabetes Father Diabetes Kidney stones Myocardial infarction Grandfather (Paternal) Myocardial infarction Denies family history of Ovarian cancer Prostate cancer Breast cancer Lung cancer Colorectal cancer Past Surgical History Surgical History H/O lithotripsy (~1997) Past Anesthesia History No Hx of Anesthesia Complications and No Family Hx of Anesthesia Complications History of PONV No Hx of PONV and No Hx of Motion Sickness Social History Smoking Status: Never smoker Hx Alcohol Use: No Hx Substance Use: No Physical Exam Vital Signs Last Vital Signs Temp 36.7 C 02/06/21 07:43 Pulse 70 02/06/21 07:43 Resp 16 02/06/21 07:43 BP 146/90 H 02/06/21 07:43 Pulse Ox 95 02/06/21 07:43 Constitutional + morbidly obese ENMT Mouth: no dentition abnormality Thyromental Distance: > or= 3.5 Finger Breadths Mallampati Class: II Neck normal visual inspection, trachea midline and + facial hair; neck extension not limited Respiratory normal respiratory effort Auscultation: lungs clear to auscultation bilaterally Cardiovascular Rate/Rhythm: regular rate and regular rhythm Heart Sounds: no murmur Vessels: no carotid bruit Musculoskeletal Spine: normal cervical ROM Extremities: + extremities abnormal to inspection Neurologic moves all extremities Motor/Sensory: no sensory deficit Psychiatric Orientation: alert and oriented x 3 Testing Laboratory Results 02/05/21 07:15 02/05/21 07:15 PT 10.1 Seconds (9.0-12.0) 02/04/21 13:47 INR 1.0 (0.9-1.1) 02/04/21 13:47 02/04/21 13:59 Gram Stain - Final Foot,Right Wound Culture - Preliminary Group B Beta Strep 02/04/21 13:58 Aerobic Blood Culture - Preliminary Blood No growth in Aerobic bottle after 24 hours. Anaerobic Blood Culture - Preliminary No growth in Anaerobic bottle after 24 hours. 02/04/21 13:47 Aerobic Blood Culture - Preliminary Blood No growth in Aerobic bottle after 24 hours. Anaerobic Blood Culture - Preliminary No growth in Anaerobic bottle after 24 hours. 02/06/21 02/06/21 06:05 00:41 POC Glucose 94 92
--- NOTE | 2021-02-06 11:33 | Post Operative Brief Note ---
Immediate Post Op Note v1 Date of Surgery February 06, 2021 Pre & Post Diagnosis Operation Date: 02/06/21 09:00 Preoperative diagnosis: Right foot fifth metatarsal phalangeal joint osteomyelitis, septic arthritis fifth metatarsal phalangeal joint, abscess right lateral forefoot, infectious tenosynovitis extensor tendon fifth, infectious tenosynovitis flexor tendon fifth, neuropathic ulcer plantar fifth metatarsal 2.5 cm x 2.5 cm x 1.0 cm. Postoperative diagnosis:Right foot fifth metatarsal phalangeal joint osteomyelitis, septic arthritis fifth metatarsal phalangeal joint, abscess right lateral forefoot, infectious tenosynovitis extensor tendon fifth, infectious tenosynovitis flexor tendon fifth, neuropathic ulcer plantar fifth metatarsal 2.5 cm x 2.5 cm x 1.0 cm. I identified the patient and participated in the time-out.: Yes Procedure Operation Date: 02/06/21 09:00 1. Right foot fifth metatarsal phalangeal joint resection arthroplasty 2. Incision and drainage abscess right lateral forefoot 3. Tenosynovectomy septic extensor tendon 4. Tenosynovectomy septic flexor tendon 5. Irrigation debridement plantar fifth metatarsal head neuropathic ulcer 2.5 cm x 2.5 cm x 1.0 cm (right foot) Surgeon Vikas Henry DO Supervisor/Port Director Prashant Pearce PA-C Estimated Blood Loss 1 Findings Consistent with Post-Op Diagnosis Specimens Bone and tissue resection arthroplasty right fifth MTP joint Aerobic, anaerobic and Gram stain abscess right lateral forefoot Drains Other (1/2 inch iodoform gauze packing) Complications none Disposition Accompanied Patient To Recovery: No
[2021-02-06] MEDS ORDERED: ONDANSETRON INJ 2 MG/ML 2 ML VIAL IV PRN (12:08)
[2021-02-06] MEDS ORDERED: LABETALOL HCL IV 5 MG/ML 20ML IV PRN (12:08)
[2021-02-06] MEDS ORDERED: FLUMAZENIL 0.1 MG/1 ML 10 ML VIAL IV PRN (12:08)
[2021-02-06] MEDS ORDERED: HYDROmorphone INJ 1 MG/ML SYRINGE IV PRN (12:08)
[2021-02-06] MEDS ORDERED: ATROPINE SULFATE 0.1 MG/ML 10ML SYR IV PRN (12:08)
[2021-02-06] MEDS ORDERED: ePHEDrine sulfate 50 MG/ML AMP IV PRN (12:08)
[2021-02-06] MEDS ORDERED: PROMETHAZINE HCL 12.5 MG in SODIUM CHLORIDE 0.9% 50 ML IV PRN (12:08)
[2021-02-06] MEDS ORDERED: NALOXONE HCL 0.4 MG/1 ML VIAL/CARP IV PRN (12:08)
[2021-02-06] MEDS: fentaNYL citrate 100 MCG/2 ML VIAL IV PRN ×2 (12:12→12:22)
--- NOTE | 2021-02-06 12:37 | Anesthesiology Progress Note ---
Date of Service February 06, 2021 Anesthesia Post Procedure Vital Signs Vital Signs: Temp Pulse Pulse Resp BP Pulse Ox 02/06/21 12:33 36.3 C L 68 15 133/75 97 02/06/21 12:23 65 13 137/87 96 02/06/21 12:13 72 16 141/90 H 98 02/06/21 12:03 72 17 146/97 H 99 02/06/21 11:53 70 18 139/88 100 02/06/21 11:43 36 C L 82 20 136/86 99 02/06/21 07:43 36.7 C 70 16 146/90 H 95 02/05/21 22:42 36.8 C 72 18 126/74 96 02/05/21 14:48 37.1 C 76 16 149/82 H 94 Pain Intensity Right Foot: Pain Intensity: 6 Transfer of Care Handoff Completed per policy Notes Mental Status: alert / awake / arousable Patient Amnestic to Procedure: Yes Nausea / Vomiting: adequately controlled Pain: adequately controlled Airway Patency, RR, SpO2: stable & adequate BP & HR: stable & adequate Hydration State: stable & adequate Anesthetic Complications: no major complications apparent
--- NOTE | 2021-02-06 12:55 | Operative Report (OR) ---
DATE OF PROCEDURE: 02/06/2021. PREOPERATIVE DIAGNOSES: 1. Right foot osteomyelitis, fifth metatarsophalangeal joint involving the proximal phalanx of the f ifth toe and the distal fifth metatarsal. 2. Septic arthritis, fifth metatarsophalangeal joint. 3. Septic tenosynovitis, fifth extensor tendon. 4. Septic tenosynovitis of the fifth flexor tendon. 5. Neuropathic fifth metatarsal ulcer 2.5 x 2.5 x 1.0 cm. 6. Abscess, lateral forefoot. POSTOPERATIVE DIAGNOSES: 1. Right foot osteomyelitis, fifth metatarsophalangeal joint involving the proximal phalanx of the f ifth toe and the distal fifth metatarsal. 2. Septic arthritis, fifth metatarsophalangeal joint. 3. Septic tenosynovitis, fifth extensor tendon. 4. Septic tenosynovitis of the fifth flexor tendon. 5. Neuropathic fifth metatarsal ulcer 2.5 x 2.5 x 1.0 cm. 6. Abscess, lateral forefoot. PROCEDURES: 1. Right foot fifth metatarsophalangeal joint resection arthroplasty involving the proximal fifth ph alanx and the distal fifth metatarsal. 2. Incision and drainage of abscess, right lateral forefoot. 3. Tenosynovectomy, septic extensor tendon. 4. Tenosynovectomy, septic flexor tendon. 5. Debridement, plantar fifth metatarsal neuropathic ulcer 2.5 x 2.5 x 1.0 cm, involving the skin, s ubcutaneous tissue and fascia. SURGEON: Vikas Henry DO. WOOD STAINER: Prashant Pearce PA-C, who was present for patient positioning, sterile prep and drape, man agement of retractors and instruments. He was present through the critical portions of the case inclu ding wound closure, application of sterile dressing and transport of the patient to recovery. ANESTHESIA: General, regional. SPECIMENS: Aerobic, anaerobic, Gram stain from the abscess, right lateral forefoot and bone and tiss ue from resection arthroplasty, fifth metatarsophalangeal joint, right foot. DRAINS: 1/2-inch iodoform gauze packing. COMPLICATIONS: None. BLOOD LOSS: 1 mL. PERTINENT HISTORY: This is a 45-year-old gentleman who had an insidious onset of ulceration, right f oot over a year ago, he was engaged in conservative management under the care of Dr. Wiedemer, podiat rist with [facility]. Ulceration worsened. The patient noted foul smelling dischar ge, redness, swelling and pain in the right foot extending proximally, presented to the hospital, adm itted for care, placed on IV antibiotics by the hospitalist team and orthopedics was consulted. MRI demonstrates osteomyelitis of the fifth metatarsal head and the proximal phalanx with abscess and inf ectious tenosynovitis suspected of the flexor and extensor tendon with an ulcer in the plantar fifth metatarsal. The patient was scheduled for surgery as indicated. All potential risks, benefits, complications, alternatives, rehab potential for incomplete relief sym ptoms, need for further surgery, DVT, PE, , persistent pain, swelling, scarring, weakness, neuro vascular injury, wound complications, need for further amputation was discussed with the patient. Th e patient decided to proceed with the procedure as indicated. DESCRIPTION OF PROCEDURE: The patient was taken to the operative suite and placed supine on the oper ating room table. After review of consent and identification of proper site, the patient was anesthe tized, LMA was placed. Right lower extremity was then sterilely prepped and draped in the usual fas ion, elevated and partially exsanguinated with an Esmarch bandage with an Esmarch tourniquet applied over sterile surgical towel at the level of the ankle. Next, after surgical timeout was performed, a partial mid foot block was performed with 0.5% Marcaine plain and then the 15 blade scalpel was used to make an incision over the dorsum of the fifth metata rsophalangeal joint. This incision was deepened through skin and subcutaneous tissue. Meticulous he mostasis was achieved with electrocautery. Mulugeta rakes were applied to retract soft tissue. The fift h extensor tendon was identified, freed with a Metzenbaum scissor and retracted, noted to be signific ant septic tenosynovitis involving the extensor noted. Next, the abscess in the lateral forefoot was encountered. This was then cultured, aerobic, anaerobi c, Gram stain. The abscess fluid pocket was then debrided and evacuated using a rongeur and curette until clear. Next, the joint capsule was entered, noted to have septic fluid within the fifth metata rsophalangeal joint with softened bone of the fifth metatarsal head and the proximal phalanx noted wi th probing with a force, which pierced the bone easily. Next, the Hohmann retractors were placed med ial and lateral to the fifth metatarsal neck and then a sagittal saw was then used to resect the fift h metatarsal head as well as the proximal phalanx. The proximal portion of the proximal phalanx of t he fifth metatarsal was also then resected using a sagittal saw. These bony fragments and soft tissu e was then sent for pathological specimen. Next, the rongeur was then used to perform a tenosynovectomy of the extensor tendon and the visualize d flexor tendon was also noted to have suppurative tenosynovitis. Tenosynovectomy was performed of t he flexor tendon of the fifth toe. Next, the ulcer measuring 2.5 x 2.5 x 1.0 cm in depth, the planta r aspect of the fifth metatarsal was then sharply debrided with a 15-blade scalpel and a rongeur incl uding the skin, subcutaneous tissue down to the level of the fascia. After all necrotic tissue and d ebris was then sharply excised, pulsatile lavage, 3 liters with Ancef 1 gram was then utilized to le anse the tissue and incision site until clear. Once this was completed, top gloves were changed and top sheet followed by placement of 1/2-inch iodo form gauze packing in the space after resection arthroplasty and then closure full thickness wit h 3-0 nylon sutures. Next, a sterile compressive forefoot dressing was applied, overwrapped with an Adam wrap. The tourniquet was released. Normal hyperemic response turned to the toes. The patient w as then awakened and then taken to recovery in stable condition. Job ID: [id number]
[2021-02-06] MEDS: HYDROmorphone INJ 1 MG/ML SYRINGE IV PRN ×3 (13:38→21:40)
[2021-02-06] MEDS: ACETAMINOPHEN 325 MG TAB PO PRN (20:11)
[2021-02-06] MEDS ORDERED: Nursing to Pharmacy Communication SCH (20:15)
[2021-02-06] MEDS: DAPTOmycin 650 MG in SYRINGE 0 ML IV SCH (22:57)
[2021-02-07] MEDS: metroNIDAZOLE 500 MG/100 ML BAG IV SCH ×3 (01:15→16:17)
[2021-02-07] MEDS: CEFEPIME 2,000 MG in SYRINGE 0 ML IV SCH ×2 (01:32→13:08)
[2021-02-07] MEDS: HYDROmorphone INJ 1 MG/ML SYRINGE IV PRN ×4 (01:56→21:08)
[2021-02-07 06:31] LABS: Hematocrit (blood only) 35.2 % (42-52); Mean Corpuscular Hemoglobin 26.5 pg (25-34); Mean Corpuscular Hgb Conc 31.3 g/dL (32-36); Mean Corpuscular Volume 84.8 fL (80-100); Mean Platelet Volume 8.7 fL (7.4-10.4); Platelet Count 426 K/uL (130-400); RDW Coefficient of Variation 13.7 % (11.5-14.5); RDW Standard Deviation 42.5 fL (36.4-46.3); Red Blood Count 4.15 M/uL (4.7-6.1); White Blood Count 11.54 K/uL (4.8-10.8)
[2021-02-07 07:01] LABS: BUN Creatinine Ratio 12.2 (10-20); Calcium 8.8 mg/dl (8.5-10.1); Creatinine Clr Calc Pharmacy 122.3 ml/min; Est GFR (African American) 87.4 ml/min; Est GFR (Non-African American) 75.4 ml/min; Potassium 4.2 mmol/L (3.5-5.1)
[2021-02-07] MEDS: INSULIN ASPART 100 UNITS/ML 3 ML PEN SC SCH ×4 (09:05→20:47)
--- NOTE | 2021-02-07 10:02 | Hospitalist Progress Note ---
Date of Service February 07, 2021 Assessment & Plan (1) Acute osteomyelitis of right foot: Plan: Antonio Miller is a 45-year-old male with a chronic right lateral foot ulceration and wound over the last year which has acutely worsened and who has evidence of osteomyelitis and septic arthritis on MRI. MRI:Interval partial destruction at the head of the fifth metatarsal and base of the fifth toe proximal phalanx consistent with an osteomyelitis. There is also a 26 x 17 x 11 mm loculated fluid collections/joint effusion at the fifth MTP joint. This is consistent with an abscess/septic arthritis. Surgical consulta tion recommended. Subcutaneous edema seen throughout the foot which could be secondary to a cellulitis. There is also edema seen within the dorsal and plantar muscles of the foot which could represent extension of the suspected infection. May need 6 to 8 weeks of antibiotics if concern for residual osteo? CRP 6.07 on admission; afebrile Continue Cefepime 2 g IV BID; Daptomycin IV daily; and Flagyl 500 mg IV Q8H - pending surgical cultures could likely de-escalate Abx and may need consideration for ID consultation when cultures populate 02/07 POD 1 s/p: * 1. Right foot fifth metatarsal phalangeal joint resection arthroplasty 2. Incision and drainage abscess right lateral forefoot 3. Tenosynovectomy septic extensor tendon 4. Tenosynovectomy septic flexor tendon 5. Irrigation debridement plantar fifth metatarsal head neuropathic ulcer 2.5 cm x 2.5 cm x 1.0 cm (right foot) Wound cx 02/04 with group B strep Wound cx from OR pending -- prelim with many WBCs seen and rare gram positive cocci Remains on Cefepime, Flagyl, Daptomycin -- Had been afebrile but temp 37.6C this afternoon Discussed with ortho and patient can be HEEL WB, and rec for DARCO forefoot shoe, elevated heel --> Discussed with Kaden العراقي who will be by to fit this afternoon Pain control, supportive care. Added PO pain medication now that tolerating diet D/c IVF Consulted PT/OT -- NWB except for transfers per ortho note this afternoon. Had removed 5-6in packing from plantar aspect with removal of rest of packing tomorrow during dressing change Continue to monitor (2) Septic arthritis of right foot: Plan: cx pending abx as above (3) Cellulitis of right foot: Plan: improving -- see above (4) Hypertension: Plan: BP stable, Cr stable and losartan 25mg resumed today Continue to monitor (5) Prediabetes: Plan: A1c - 6.2 Continue SSI - as expected, minimal coverage needed - will monitor for additional needs post-operatively BSGs acceptable Continue to monitor Rec outpt f/u Plan: DVT prophylaxis: Likely can add Heparin pending post-op course -- will clear with ortho this afternoon and order if agreeable to start today Remain on IV abx for now, 2-3 weeks expected IV abx, possible PO based on cultures Consult with ID once cultures available Admission and Anticipated Discharge Date Admission Date: February 04, 2021 Supervising Physician Co-Signing Physician Notes PA Supervision Note: I did not personally see or examine the patient today, but I verified all lewis points of HELEN Corcoran's assessment and plan with the following exceptions/additions: None Subjective Patient evaluated this afternoon. Up in chair eating lunch. Pain currently controleld with ordered medications and discussed added PO option for longer lasting control but can keep IV for breakthrough. Eating/drinking without issue and passing gas but no BM. OR culture pending. Has not yet seen ortho but discussed likely to need continued IV abx but will consult with ID once final cultures obtained. Denies any fever, chills but states aide/nursing staff in room reported a low grade temperature -- review of chart with most recent temp 37.2C. Last temp in system 37.3C on 02/04 at 13:20. Blood cultures from 02/04 remain no growth to date. Review of Systems Review of Systems: All systems reviewed & are unremarkable except as noted in HPI & below Physical Exam Physical Exam: PHYSICAL EXAM General Appearance: WDWN in NAD who is A&O x 3 HEENT: Head is normocephalic/atraumatic; Hearing grossly intact; Mucous membranes moist Neck: Supple; Trachea midline; Neg JVD Heart: RRR with no M/G/R Lungs: CTA in all lung kline bilaterally; Respirations unlabored; Neg accessory muscle use Abdomen: Soft, non-tender, non-distended; Positive BS x 4 quadrants Extremities: Neg cyanosis Neurological: Speech clear; Gross motor/sensory function intact; Neg focal neurologic deficits Psychiatric: Appropriate mood/affect Skin/MSK -- dressing to RLE with drainage noted through several layers of gauze packing. Erythema improving within markings with small amount of blood drainage from dorsal aspect. minimal tenderness. cap refill <3 seconds pulses palpable, NVI toenails with chronic thickening/yellowing Results & Data Results & Data ([facility]) Vital Signs (Past 12 Hours) Vital Signs Temp Pulse Resp BP Pulse Ox 02/07/21 07:58 36.8 C 93 H 18 162/84 H 91 02/07/21 04:00 37.3 C 90 16 147/70 H 92 02/06/21 23:21 36.9 C 84 16 143/80 H 92 Laboratory Results 02/07/21 02/07/21 02/07/21 Range/Units 12:14 08:21 06:08 WBC (4.8-10.8) K/uL RBC (4.7-6.1) M/uL Hgb (14.0-18.0) g/dL Hct (42-52) % MCV (80-100) fL MCH (25-34) pg MCHC (32-36) g/dL RDW Std Deviation (36.4-46.3) fL RDW Coeff of Sharda (11.5-14.5) % Plt Count (130-400) K/uL MPV (7.4-10.4) fL Sodium 136 (136-145) mmol/L Potassium 4.2 (3.5-5.1) mmol/L Chloride 102 (98-107) mmol/L Carbon Dioxide 26 (21-32) mmol/L Anion Gap 8.0 (3-11) BUN 14 (7-18) mg/dl Creatinine 1.17 (0.6-1.4) mg/dl Est Cr Clr Drug Dosing 122.3 ml/min Est GFR ( Amer) 87.4 ml/min Est GFR (Non-Af Amer) 75.4 ml/min BUN/Creatinine Ratio 12.2 (10-20) Glucose 123 H (70-99) mg/dl POC Glucose 124 H 133 H (70-99) mg/dl Calcium 8.8 (8.5-10.1) mg/dl 02/07/21 02/06/21 02/06/21 Range/Units 06:08 20:34 17:14 WBC 11.54 H (4.8-10.8) K/uL RBC 4.15 L (4.7-6.1) M/uL Hgb 11.0 L (14.0-18.0) g/dL Hct 35.2 L (42-52) % MCV 84.8 (80-100) fL MCH 26.5 (25-34) pg MCHC 31.3 L (32-36) g/dL RDW Std Deviation 42.5 (36.4-46.3) fL RDW Coeff of Sharda 13.7 (11.5-14.5) % Plt Count 426 H (130-400) K/uL MPV 8.7 (7.4-10.4) fL Sodium (136-145) mmol/L Potassium (3.5-5.1) mmol/L Chloride (98-107) mmol/L Carbon Dioxide (21-32) mmol/L Anion Gap (3-11) BUN (7-18) mg/dl Creatinine (0.6-1.4) mg/dl Est Cr Clr Drug Dosing ml/min Est GFR ( Amer) ml/min Est GFR (Non-Af Amer) ml/min BUN/Creatinine Ratio (10-20) Glucose (70-99) mg/dl POC Glucose 96 106 H (70-99) mg/dl Calcium (8.5-10.1) mg/dl PG Care Time/CCT Total # of Minutes Spent Total Time Spent with Patient: Total time spent is greater than 50% in coordination of care (as documented) at patient's floor/unit and/or counseling patient: Coding Level of Care Code 10728 Subseq Hosp Care Lvl 3 Diagnoses Acute osteomyelitis of right foot M86.171 Septic arthritis of right foot M00.9 Cellulitis of right foot L03.115 Hypertension I10 Prediabetes R73.03
[2021-02-07] MEDS: LOSARTAN POTASSIUM 25 MG TAB PO SCH (12:36)
[2021-02-07] MEDS: NSS + 20MEQ KCL 20 MEQ/1,000 ML BAG IV SCH (13:12)
--- NOTE | 2021-02-07 15:47 | Orthopedic Progress Note ---
Date of Service February 07, 2021 Assessment & Plan (1) Acute osteomyelitis of right foot: Plan: POD #1 s/p 1. Right foot fifth metatarsophalangeal joint resection arthroplasty involving the proximal fifth phalanx and the distal fifth metatarsal. 2. Incision and drainage of abscess, right lateral forefoot. 3. Tenosynovectomy, septic extensor tendon. 4. Tenosynovectomy, septic flexor tendon. 5. Debridement, plantar fifth metatarsal neuropathic ulcer 2.5 x 2.5 x 1.0 cm, involving the skin, subcutaneous tissue and fascia Patient's dressing was changed today. Approximately 5 to 6 inches of iodoform gauze packing was removed from the plantar aspect of the foot. Wound was then dressed with Adaptic, gauze, gauze wrap, Adam bandage. The patient is to be nonweightbearing on the right lower extremity at all times with the exception of transfers with use of a Darco elevated heel shoe with a open forefoot shoe Continue IV antibiotics. Discussion with the patient and his that he may need 2 to 3 weeks of IV antibiotics postoperatively before transition to oral antibiotics. Plan for the removal of the rest of the packing tomorrow during dressing change. Discharge planninguncertain at this time. Awaiting final cultures. Admission and Anticipated Discharge Date Admission Date: February 04, 2021 Subjective Patient states he is doing well postoperatively. The pain is controlled in his right foot. He has been nonweightbearing on the right lower extremity. No new complaints today. Physical Exam Constitutional: WD/WN, vitals as above no acute distress Musculoskeletal: Right foot: Well approximated incision over the dorsal fifth metatarsal. Stable plantar ulceration with gauze packing in place. Erythema appears to be improved from lines placed on his foot previously. There is mild bloody drainage from the dorsal incision and the plantar ulceration. Psychiatric: A+Ox3, euthymic affect Speech: normal rate/rhythm/volume of speech Results & Data ([facility]) Vital Signs (Past 12 Hours) Vital Signs Temp Pulse Resp BP Pulse Ox 02/07/21 12:27 37.2 C 93 H 18 156/88 H 91 02/07/21 07:58 36.8 C 93 H 18 162/84 H 91 02/07/21 04:00 37.3 C 90 16 147/70 H 92
[2021-02-07] MEDS: oxyCODONE HCL IR 5 MG TAB (IMMEDIATE RELEASE) PO PRN (19:46)
[2021-02-07] MEDS: DAPTOmycin 650 MG in SYRINGE 0 ML IV SCH (21:08)
[2021-02-07] MEDS: HEPARIN SOD 5,000 UNIT/0.5 ML VIAL SQ SCH (21:09)
[2021-02-08] MEDS: metroNIDAZOLE 500 MG/100 ML BAG IV SCH ×2 (00:28→07:52)
[2021-02-08] MEDS: CEFEPIME 2,000 MG in SYRINGE 0 ML IV SCH ×2 (00:29→14:09)
[2021-02-08] MEDS: oxyCODONE HCL IR 5 MG TAB (IMMEDIATE RELEASE) PO PRN ×4 (00:29→21:07)
[2021-02-08] MEDS: HYDROmorphone INJ 1 MG/ML SYRINGE IV PRN ×2 (04:50→10:30)
[2021-02-08] MEDS: HEPARIN SOD 5,000 UNIT/0.5 ML VIAL SQ SCH ×3 (04:52→21:07)
[2021-02-08 06:55] LABS: Basophils # (auto) 0.03 K/uL (0-0.2); Basophils % (auto) 0.3 %; Eosinophils # (auto) 0.06 K/uL (0-0.5); Eosinophils % (auto) 0.5 %; Hematocrit (blood only) 35.3 % (42-52); Hemoglobin 11.1 g/dL (14.0-18.0); Immature Granulocytes # (auto) 0.05 K/uL (0.00-0.02); Immature Granulocytes % (auto) 0.4 %; Lymphocytes # (auto) 1.54 K/uL (1.2-3.4); Lymphocytes % (auto) 12.9 %; Mean Corpuscular Hemoglobin 26.6 pg (25-34); Mean Corpuscular Hgb Conc 31.4 g/dL (32-36); Mean Corpuscular Volume 84.7 fL (80-100); Mean Platelet Volume 8.7 fL (7.4-10.4); Monocytes # (auto) 1.41 K/uL (0.11-0.59); Monocytes % (auto) 11.8 %; Neutrophils # (auto) 8.86 K/uL (1.4-6.5); Neutrophils % (auto) 74.1 %; Platelet Count 438 K/uL (130-400); RDW Coefficient of Variation 13.9 % (11.5-14.5); RDW Standard Deviation 42.7 fL (36.4-46.3); Red Blood Count 4.17 M/uL (4.7-6.1); White Blood Count 11.95 K/uL (4.8-10.8)
[2021-02-08 07:59] LABS: BUN Creatinine Ratio 13.2 (10-20); Calcium 8.8 mg/dl (8.5-10.1); Creatinine Clr Calc Pharmacy 137.6 ml/min; Est GFR (African American) 100.7 ml/min; Est GFR (Non-African American) 86.9 ml/min; Magnesium 2.1 mg/dl (1.8-2.4); Potassium 3.9 mmol/L (3.5-5.1)
[2021-02-08] MEDS: INSULIN ASPART 100 UNITS/ML 3 ML PEN SC SCH ×4 (09:01→21:08)
[2021-02-08] MEDS: LOSARTAN POTASSIUM 25 MG TAB PO SCH (09:02)
--- NOTE | 2021-02-08 09:23 | Hospitalist Progress Note ---
Date of Service February 08, 2021 Assessment & Plan (1) Acute osteomyelitis of right foot: Plan: Antonio Miller is a 45-year-old male with a chronic right lateral foot ulceration and wound over the last year which has acutely worsened and who has evidence of osteomyelitis and septic arthritis on MRI. No hx PAD, smoking. Is pre-DM. MRI:Interval partial destruction at the head of the fifth metatarsal and base of the fifth toe proximal phalanx consistent with an osteomyelitis. There is also a 26 x 17 x 11 mm loculated fluid collections/joint effusion at the fifth MTP joint. This is consistent with an abscess/septic arthritis. Surgical consultation recommended. Subcutaneous edema seen throughout the foot which could be secondary to a cellulitis. There is also edema seen within the dorsal and plantar muscles of the foot which could represent extension of the suspected infection. May need 6 to 8 weeks of antibiotics if concern for residual osteo? CRP 6.07 on admission; afebrile 02/08 POD 2 s/p: * 1. Right foot fifth metatarsal phalangeal joint resection arthroplasty 2. Incision and drainage abscess right lateral forefoot 3. Tenosynovectomy septic extensor tendon 4. Tenosynovectomy septic flexor tendon 5. Irrigation debridement plantar fifth metatarsal head neuropathic ulcer 2.5 cm x 2.5 cm x 1.0 cm (right foot) Added Heparin SQ for DVT prophylaxis 02/07 per discussion with ortho Wound cx 02/04 with group B strep Wound cx from OR pending -- prelim with many WBCs seen and rare gram positive cocci -- pin point growth, re-incubating Remains on Cefepime, Flagyl, Daptomycin --> Switched Flagyl to PO. D/c Daptomycin (no hx MRSA). Continue Cefepime for now Repeat blood cultures pending. Initial continue without growth WBC essentially unchanged, 11.9k. Reactive from surgery? Did have some faint bibasilar crackles ?atelectasis. Added incentive spirometry CRP elevated, ESR trending down. Pain meds-- increased to 10mg oxycodone prn for severe pain to limit use of IV Bowel regimen miralax, senna Rest of packing removed today by orthopedics DARCO boot provided by orthotics -- had been working to get inserts into his shoes as he walks on outside aspect, likely causing initial injury. HEEL WE[facility] ID consultation pending for duration/route abx PT/OT consults pending - may benefit from rehab vs home therapy (2) Septic arthritis of right foot: Plan: cx pending abx as above (3) Cellulitis of right foot: Plan: improving -- see above (4) Hypertension: Plan: BP 122/81 Continue losartan (5) Prediabetes: Plan: A1c - 6.2 Continue SSI - as expected, minimal coverage needed - will monitor for additional needs post-operatively BSGs acceptable Continue to monitor Rec outpt f/u Strong maternal family history -- stress dietary changes/close monitoring and may benefit from starting metformin given metabolic syndrome Plan: DVT prophylaxis: Heparin SQ Remain on IV abx for now, 2-3 weeks expected IV abx, possible PO based on cultures/clearance of infection Consult with ID once cultures available Admission and Anticipated Discharge Date Admission Date: February 04, 2021 Supervising Physician Co-Signing Physician Notes PA Supervision Note: I did not personally see or examine the patient today, but I verified all lewis points of HELEN Corcoran's assessment and plan with the following exceptions/additions: None Subjective Patient valuate this afternoon. States that he has had his pain fairly well controlled however does increase this afternoon following getting up with therapy. He was seen by orthotics and fitted with his Darco shoe which he utilized when up out of bed. Discussed increasing dose of oxycodone to 10 mg to avoid as much IV pain medication as this seems to wear off quickly and discussed oral with longer duration.. He states that he has been passing gas but no bowel movement magdi increased ambulation and stool softeners. He denies any abdominal pain nausea or vomiting. Did have a temp 37.6 C but denied feeling feverish. Discussed repeat blood cultures currently negative we will continue to monitor. No chest pain or shortness of breath. Discussed that while he states he did not do well in therapy if he continues to progress he may benefit from home with home therapy he states that he would prefer home with home health if that is available. Also discussed consultation with infectious disease provider tomorrow to see if he will need continued IV antibiotics or if Possibly shorten course of IV followed by oral sufficient. Continues to deny any smoking history of chewing tobacco. He does have a family history of diabetes and discussed the importance of adherence and dietary modifications to prevent worsening of this and may need to start Metformin in future.. He noted that he had been working with podiatry and orthotics in the past attempting to get inserts for his shoes as he tends to walk on the outside aspect, likely causing start of current lesion/infection. Questions and concerns addressed at this time Review of Systems Review of Systems: All systems reviewed & are unremarkable except as noted in HPI & below Physical Exam Physical Exam: General Appearance: WDWN in NAD who is A&O x 3 HEENT: Head is normocephalic/atraumatic; Hearing grossly intact; Mucous membranes moist Neck: Supple; Trachea midline; Neg JVD Heart: RRR with no M/G/R Lungs: CTA in all lung kline bilaterally; Respirations unlabored; Neg accessory muscle use, faint bibasilar crackles Abdomen: Soft, non-tender, non-distended; Positive BS x 4 quadrants Extremities: Neg cyanosis Neurological: Speech clear; Gross motor/sensory function intact; Neg focal neurologic deficits Psychiatric: Appropriate mood/affect Skin/MSK -- dressing to RLE with (PACKING REMOVED THIS MORNING BY ORTHO AND DRESSING REDONE). dressing c/d/i. NVI, pulses palpable bilaterally PT. cap refill <3 seconds toenails with chronic thickening/yellowing Results & Data Results & Data ([facility]) Vital Signs (Past 12 Hours) Vital Signs Temp Pulse Resp BP Pulse Ox 02/08/21 08:02 17 122/81 93 02/07/21 22:34 37.6 C H 94 H 16 142/88 H 93 Laboratory Results 02/08/21 02/08/21 02/08/21 Range/Units 08:06 06:20 06:20 WBC 11.95 H (4.8-10.8) K/uL RBC 4.17 L (4.7-6.1) M/uL Hgb 11.1 L (14.0-18.0) g/dL Hct 35.3 L (42-52) % MCV 84.7 (80-100) fL MCH 26.6 (25-34) pg MCHC 31.4 L (32-36) g/dL RDW Std Deviation 42.7 (36.4-46.3) fL RDW Coeff of Sharda 13.9 (11.5-14.5) % Plt Count 438 H (130-400) K/uL MPV 8.7 (7.4-10.4) fL Immature Gran % (Auto) 0.4 % Neut % (Auto) 74.1 % Lymph % (Auto) 12.9 % Luce % (Auto) 11.8 % Eos % (Auto) 0.5 % Baso % (Auto) 0.3 % Neut # (Auto) 8.86 H (1.4-6.5) K/uL Lymph # (Auto) 1.54 (1.2-3.4) K/uL Luce # (Auto) 1.41 H (0.11-0.59) K/uL Eos # (Auto) 0.06 (0-0.5) K/uL Baso # (Auto) 0.03 (0-0.2) K/uL Immature Gran # (Auto) 0.05 H (0.00-0.02) K/uL Sodium 134 L (136-145) mmol/L Potassium 3.9 (3.5-5.1) mmol/L Chloride 101 (98-107) mmol/L Carbon Dioxide 25 (21-32) mmol/L Anion Gap 8.0 (3-11) BUN 14 (7-18) mg/dl Creatinine 1.04 (0.6-1.4) mg/dl Est Cr Clr Drug Dosing 137.6 ml/min Est GFR ( Amer) 100.7 ml/min Est GFR (Non-Af Amer) 86.9 ml/min BUN/Creatinine Ratio 13.2 (10-20) Glucose 118 H (70-99) mg/dl POC Glucose 125 H (70-99) mg/dl Calcium 8.8 (8.5-10.1) mg/dl Magnesium 2.1 (1.8-2.4) mg/dl 02/07/21 02/07/21 02/07/21 Range/Units 20:43 17:19 12:14 WBC (4.8-10.8) K/uL RBC (4.7-6.1) M/uL Hgb (14.0-18.0) g/dL Hct (42-52) % MCV (80-100) fL MCH (25-34) pg MCHC (32-36) g/dL RDW Std Deviation (36.4-46.3) fL RDW Coeff of Sharda (11.5-14.5) % Plt Count (130-400) K/uL MPV (7.4-10.4) fL Immature Gran % (Auto) % Neut % (Auto) % Lymph % (Auto) % Luce % (Auto) % Eos % (Auto) % Baso % (Auto) % Neut # (Auto) (1.4-6.5) K/uL Lymph # (Auto) (1.2-3.4) K/uL Luce # (Auto) (0.11-0.59) K/uL Eos # (Auto) (0-0.5) K/uL Baso # (Auto) (0-0.2) K/uL Immature Gran # (Auto) (0.00-0.02) K/uL Sodium (136-145) mmol/L Potassium (3.5-5.1) mmol/L Chloride (98-107) mmol/L Carbon Dioxide (21-32) mmol/L Anion Gap (3-11) BUN (7-18) mg/dl Creatinine (0.6-1.4) mg/dl Est Cr Clr Drug Dosing ml/min Est GFR ( Amer) ml/min Est GFR (Non-Af Amer) ml/min BUN/Creatinine Ratio (10-20) Glucose (70-99) mg/dl POC Glucose 118 H 124 H 124 H (70-99) mg/dl Calcium (8.5-10.1) mg/dl Magnesium (1.8-2.4) mg/dl PG Care Time/CCT Total # of Minutes Spent Total Time Spent with Patient: Total time spent is greater than 50% in coordination of care (as documented) at patient's floor/unit and/or counseling patient: Coding Level of Care Code 97184 Subseq Hosp Care Lvl 3 Diagnoses Acute osteomyelitis of right foot M86.171 Septic arthritis of right foot M00.9 Cellulitis of right foot L03.115 Hypertension I10 Prediabetes R73.03
[2021-02-08] MEDS: DOCUSATE SODIUM/SENNA 50/8.6MG TAB PO SCH (13:16)
[2021-02-08] MEDS: POLYETHYLENE (MIRALAX) 17 GM PACK PO SCH (13:16)
[2021-02-08] MEDS: metroNIDAZOLE 500 MG TAB PO SCH (15:55)
--- NOTE | 2021-02-08 16:30 | Orthopedic Progress Note ---
Date of Service February 08, 2021 Assessment & Plan (1) Acute osteomyelitis of right foot: Plan: POD #2 s/p 1. Right foot fifth metatarsophalangeal joint resection arthroplasty involving the proximal fifth phalanx and the distal fifth metatarsal. 2. Incision and drainage of abscess, right lateral forefoot. 3. Tenosynovectomy, septic extensor tendon. 4. Tenosynovectomy, septic flexor tendon. 5. Debridement, plantar fifth metatarsal neuropathic ulcer 2.5 x 2.5 x 1.0 cm, involving the skin, subcutaneous tissue and fascia Patient's dressing was changed today. Approximately 2-2.5 feet of iodoform gauze packing was removed from the plantar aspect of the foot. Wound was then dressed with Adaptic, gauze, gauze wrap, Adam bandage. The patient is to be nonweightbearing on the right lower extremity at all times with the exception of transfers with use of a Darco elevated heel shoe with a open forefoot shoe. Continue IV antibiotics. Discussion with the patient and his that he may need 2 to 3 weeks of IV antibiotics postoperatively before transition to oral antibiotics. Discharge planninguncertain at this time. Awaiting final cultures. Will order daily dressing changes with nursing. Patient to follow up with Dr. Henry's office in 1 week. Admission and Anticipated Discharge Date Admission Date: February 04, 2021 Subjective Doing well. Still had some pain in the foot this AM. Has been NWB on the RLE. Physical Exam Constitutional: WD/WN, vitals as above no acute distress Skin: + ulcer (Stable plantar right 5th MTP ulcer with packing. ), + wound (Well approximated dorsal right 5th MTP incision. Minimal erythema.) and + erythema (Minimal dorsal right foot.) Psychiatric: A+Ox3, euthymic affect Speech: normal rate/rhythm/volume of speech Results & Data ([facility]) Vital Signs (Past 12 Hours) Vital Signs Temp Pulse Resp BP Pulse Ox 02/08/21 16:09 36.8 C 89 17 136/67 95 02/08/21 08:02 17 122/81 93
[2021-02-09] MEDS: CEFEPIME 2,000 MG in SYRINGE 0 ML IV SCH (00:57)
[2021-02-09] MEDS: oxyCODONE HCL IR 5 MG TAB (IMMEDIATE RELEASE) PO PRN ×4 (00:57→20:45)
[2021-02-09] MEDS: metroNIDAZOLE 500 MG TAB PO SCH ×3 (00:57→15:19)
[2021-02-09] MEDS: HEPARIN SOD 5,000 UNIT/0.5 ML VIAL SQ SCH ×3 (06:19→20:54)
[2021-02-09] MEDS: ACETAMINOPHEN 325 MG TAB PO PRN (08:03)
[2021-02-09] MEDS: LOSARTAN POTASSIUM 25 MG TAB PO SCH (08:56)
[2021-02-09] MEDS: DOCUSATE SODIUM/SENNA 50/8.6MG TAB PO SCH (08:56)
[2021-02-09] MEDS: POLYETHYLENE (MIRALAX) 17 GM PACK PO SCH (08:56)
[2021-02-09] MEDS: INSULIN ASPART 100 UNITS/ML 3 ML PEN SC SCH ×4 (08:57→20:46)
--- NOTE | 2021-02-09 08:57 | Hospitalist Progress Note ---
Date of Service February 09, 2021 Assessment & Plan (1) Acute osteomyelitis of right foot: Plan: Antonio Miller is a 45-year-old male with a chronic right lateral foot ulceration and wound over the last year which has acutely worsened and who has evidence of osteomyelitis and septic arthritis on MRI. No hx PAD, smoking. Is pre-DM. MRI:Interval partial destruction at the head of the fifth metatarsal and base of the fifth toe proximal phalanx consistent with an osteomyelitis. There is also a 26 x 17 x 11 mm loculated fluid collections/joint effusion at the fifth MTP joint. This is consistent with an abscess/septic arthritis. Surgical consultation recommended. Subcutaneous edema seen throughout the foot which could be secondary to a cellulitis. There is also edema seen within the dorsal and plantar muscles of the foot which could represent extension of the suspected infection. CRP 6.07 on admission; afebrile 02/09 POD 3 s/p: * 1. Right foot fifth metatarsal phalangeal joint resection arthroplasty 2. Incision and drainage abscess right lateral forefoot 3. Tenosynovectomy septic extensor tendon 4. Tenosynovectomy septic flexor tendon 5. Irrigation debridement plantar fifth metatarsal head neuropathic ulcer 2.5 cm x 2.5 cm x 1.0 cm (right foot) Wound cx 02/04 with group B strep Wound cx from OR GROUP B STREP WBC elevated to 13.2k today but remaining afebrile. Ordered and encouraged continued use of incentive spirometer (bibasilar crackles resolving on exam). CRP elevated De-escalated to Ceftriaxone 02/09 for more narrowed coverage ID consult today --> recs for 6wks Rocephin given the osteo. Official report not yet in system. Consult done by Dr. Martins [facility] line consent obtained and to be placed today Blood cultures NGTD from 02/04. Repeat BCx 02/07 without growth -- follow Pain control, bowel regimen --> + BM Continue with DARCO boots provided/fitted by orthotics --> HEEL WB w transferring only Will need walker but need wheelchair for now until weight bearing status/mobility improve to assist with ADLs --> Will provide CM with rx Monitor labs in AM If improved/arrangements made for home abx likely d/c tomorrow (2) Septic arthritis of right foot: Plan: cx pending abx as above (3) Cellulitis of right foot: Plan: improving -- see above (4) Hypertension: Plan: Continue losartan (5) Prediabetes: Plan: A1c - 6.2 Continue SSI - as expected, minimal coverage needed - will monitor for additional needs post-operatively BSGs acceptable Continue to monitor Rec outpt f/u Strong maternal family history -- stress dietary changes/close monitoring and may benefit from starting metformin given metabolic syndrome Plan: DVT prophylaxis: Heparin SQ Ceftriaxone, PICC line today CM working on arranging home abx. Rx provided. Will need weekly labs while on abx Admission and Anticipated Discharge Date Admission Date: February 04, 2021 Supervising Physician Co-Signing Physician Notes PA Supervision Note: I did not personally see or examine the patient today, but I verified all lewis points of HELEN Corcoran's assessment and plan with the following exceptions/additions: None Subjective Patient evaluated this afternoon. Pain controlled, doing well. Consultation with ID this morning, cut short due to technical issues but was discussed with Dr. Martins, who rec 6wks Rocephin. Discussed PICC line, risks, and obtained consent. PT/OT with recs for rehab, however patient would ideally like to go home with home therapy. Will discuss with CM. May need wheelchair until weightbearing status improves and will provide rx to CM. No further fever, chills. Moving bowels. No cp, sob, abdomen pain, n/v/d. Questions/concerns addressed at this time. Hopeful for d/c in next 1-2 days once abx arranged/home health. Review of Systems Review of Systems: All systems reviewed & are unremarkable except as noted in HPI & below Physical Exam Physical Exam: General Appearance: WD/WN in NAD who is A&O x 3 HEENT: Head is normocephalic/atraumatic; Hearing grossly intact; Mucous membranes moist Neck: Supple; Trachea midline; Neg JVD Heart: RRR with no M/G/R Lungs: CTA in all lung kline bilaterally; Respirations unlabored; Neg accessory muscle use, faint bibasilar crackles Abdomen: Soft, non-tender, non-distended; Positive BS x 4 quadrants Extremities: Neg cyanosis Neurological: Speech clear; Gross motor/sensory function intact; Neg focal neurologic deficits Psychiatric: Appropriate mood/affect Skin/MSK -- dressing to RLE c/d/i. NVI, pulses palpable bilaterally PT. cap refill <3 seconds toenails with chronic thickening/yellowing Results & Data Results & Data ([facility]) Vital Signs (Past 12 Hours) Vital Signs Temp Pulse Resp BP Pulse Ox 02/09/21 07:37 36.7 C 88 19 142/82 H 95 02/08/21 23:06 37.4 C 96 H 16 141/83 H 92 Laboratory Results 02/09/21 02/09/21 02/09/21 Range/Units 12:03 08:58 08:58 WBC 13.21 H (4.8-10.8) K/uL RBC 4.43 L (4.7-6.1) M/uL Hgb 11.8 L (14.0-18.0) g/dL Hct 36.4 L (42-52) % MCV 82.2 (80-100) fL MCH 26.6 (25-34) pg MCHC 32.4 (32-36) g/dL RDW Std Deviation 41.8 (36.4-46.3) fL RDW Coeff of Sharda 13.8 (11.5-14.5) % Plt Count 494 H (130-400) K/uL MPV 8.8 (7.4-10.4) fL Immature Gran % (Auto) 0.4 % Neut % (Auto) 80.0 % Lymph % (Auto) 8.5 % Schley % (Auto) 10.3 % Eos % (Auto) 0.6 % Baso % (Auto) 0.2 % Neut # (Auto) 10.57 H (1.4-6.5) K/uL Lymph # (Auto) 1.12 L (1.2-3.4) K/uL Schley # (Auto) 1.36 H (0.11-0.59) K/uL Eos # (Auto) 0.08 (0-0.5) K/uL Baso # (Auto) 0.03 (0-0.2) K/uL Immature Gran # (Auto) 0.05 H (0.00-0.02) K/uL Sodium 133 L (136-145) mmol/L Potassium 4.0 (3.5-5.1) mmol/L Chloride 102 (98-107) mmol/L Carbon Dioxide 23 (21-32) mmol/L Anion Gap 8.0 (3-11) BUN 17 (7-18) mg/dl Creatinine 0.98 (0.6-1.4) mg/dl Est Cr Clr Drug Dosing 146.0 ml/min Est GFR ( Amer) 108.2 ml/min Est GFR (Non-Af Amer) 93.4 ml/min BUN/Creatinine Ratio 17.1 (10-20) Glucose 141 H (70-99) mg/dl POC Glucose 123 H (70-99) mg/dl Calcium 9.2 (8.5-10.1) mg/dl C-Reactive Protein 14.20 H (0-0.29) mg/dl 02/09/21 02/08/21 02/08/21 Range/Units 08:20 20:36 17:25 WBC (4.8-10.8) K/uL RBC (4.7-6.1) M/uL Hgb (14.0-18.0) g/dL Hct (42-52) % MCV (80-100) fL MCH (25-34) pg MCHC (32-36) g/dL RDW Std Deviation (36.4-46.3) fL RDW Coeff of Sharda (11.5-14.5) % Plt Count (130-400) K/uL MPV (7.4-10.4) fL Immature Gran % (Auto) % Neut % (Auto) % Lymph % (Auto) % Schley % (Auto) % Eos % (Auto) % Baso % (Auto) % Neut # (Auto) (1.4-6.5) K/uL Lymph # (Auto) (1.2-3.4) K/uL Schley # (Auto) (0.11-0.59) K/uL Eos # (Auto) (0-0.5) K/uL Baso # (Auto) (0-0.2) K/uL Immature Gran # (Auto) (0.00-0.02) K/uL Sodium (136-145) mmol/L Potassium (3.5-5.1) mmol/L Chloride (98-107) mmol/L Carbon Dioxide (21-32) mmol/L Anion Gap (3-11) BUN (7-18) mg/dl Creatinine (0.6-1.4) mg/dl Est Cr Clr Drug Dosing ml/min Est GFR ( Amer) ml/min Est GFR (Non-Af Amer) ml/min BUN/Creatinine Ratio (10-20) Glucose (70-99) mg/dl POC Glucose 121 H 123 H 113 H (70-99) mg/dl Calcium (8.5-10.1) mg/dl C-Reactive Protein (0-0.29) mg/dl PG Care Time/CCT Total # of Minutes Spent Total Time Spent with Patient: Total time spent is greater than 50% in coordination of care (as documented) at patient's floor/unit and/or counseling patient: Coding Level of Care Code 24871 Subseq Hosp Care Lvl 3 Diagnoses Acute osteomyelitis of right foot M86.171 Septic arthritis of right foot M00.9 Cellulitis of right foot L03.115 Hypertension I10 Prediabetes R73.03
[2021-02-09] MEDS: cefTRIAXone SODIUM 2,000 MG in DEXTROSE 5% 50 ML IV SCH (09:06)
[2021-02-09 09:27] LABS: Basophils # (auto) 0.03 K/uL (0-0.2); Basophils % (auto) 0.2 %; Eosinophils # (auto) 0.08 K/uL (0-0.5); Eosinophils % (auto) 0.6 %; Hematocrit (blood only) 36.4 % (42-52); Hemoglobin 11.8 g/dL (14.0-18.0); Immature Granulocytes # (auto) 0.05 K/uL (0.00-0.02); Immature Granulocytes % (auto) 0.4 %; Lymphocytes # (auto) 1.12 K/uL (1.2-3.4); Lymphocytes % (auto) 8.5 %; Mean Corpuscular Hemoglobin 26.6 pg (25-34); Mean Corpuscular Hgb Conc 32.4 g/dL (32-36); Mean Corpuscular Volume 82.2 fL (80-100); Mean Platelet Volume 8.8 fL (7.4-10.4); Monocytes # (auto) 1.36 K/uL (0.11-0.59); Monocytes % (auto) 10.3 %; Neutrophils # (auto) 10.57 K/uL (1.4-6.5); Platelet Count 494 K/uL (130-400); RDW Coefficient of Variation 13.8 % (11.5-14.5); RDW Standard Deviation 41.8 fL (36.4-46.3); Red Blood Count 4.43 M/uL (4.7-6.1); White Blood Count 13.21 K/uL (4.8-10.8)
[2021-02-09 09:54] LABS: BUN Creatinine Ratio 17.1 (10-20); C Reactive Protein 14.2 mg/dl (0-0.29); Calcium 9.2 mg/dl (8.5-10.1); Est GFR (African American) 108.2 ml/min; Est GFR (Non-African American) 93.4 ml/min
[2021-02-10] MEDS: oxyCODONE HCL IR 5 MG TAB (IMMEDIATE RELEASE) PO PRN ×2 (03:12→13:29)
[2021-02-10] MEDS: HEPARIN SOD 5,000 UNIT/0.5 ML VIAL SQ SCH ×2 (05:37→14:24)
[2021-02-10 06:05] LABS: Basophils # (auto) 0.05 K/uL (0-0.2); Basophils % (auto) 0.5 %; Eosinophils # (auto) 0.14 K/uL (0-0.5); Eosinophils % (auto) 1.3 %; Hematocrit (blood only) 33.7 % (42-52); Hemoglobin 10.9 g/dL (14.0-18.0); Immature Granulocytes # (auto) 0.03 K/uL (0.00-0.02); Immature Granulocytes % (auto) 0.3 %; Lymphocytes # (auto) 1.74 K/uL (1.2-3.4); Lymphocytes % (auto) 16.5 %; Mean Corpuscular Hemoglobin 26.9 pg (25-34); Mean Corpuscular Hgb Conc 32.3 g/dL (32-36); Mean Corpuscular Volume 83.2 fL (80-100); Mean Platelet Volume 8.9 fL (7.4-10.4); Monocytes # (auto) 1.07 K/uL (0.11-0.59); Monocytes % (auto) 10.1 %; Neutrophils # (auto) 7.53 K/uL (1.4-6.5); Neutrophils % (auto) 71.3 %; Platelet Count 476 K/uL (130-400); RDW Standard Deviation 42.2 fL (36.4-46.3); Red Blood Count 4.05 M/uL (4.7-6.1); White Blood Count 10.56 K/uL (4.8-10.8)
[2021-02-10 06:39] LABS: C Reactive Protein 14.2 mg/dl (0-0.29); Calcium 8.8 mg/dl (8.5-10.1); Creatinine Clr Calc Pharmacy 155.5 ml/min; Est GFR (African American) 116.8 ml/min; Est GFR (Non-African American) 100.8 ml/min; Potassium 4.1 mmol/L (3.5-5.1)
--- NOTE | 2021-02-10 08:37 | Discharge Summary ---
Date of Service February 10, 2021 Admission HPI Per Admitting Provider Antonio is a 45-year-old male with a past medical history of peripheral neuropathy, hypertension, metabolic syndrome, prediabetes, and gout who presented to [facility] with concern for a right foot in fection. He has a chronic right foot wound followed by podiatry. In the last 3 days he has had increased pain, swelling, and redness of the foot extending to the ankle. He was forwarded to [facility] for additional care for concern of osteomyelitis. Right foot infection right foot cellulitis with osteomyelitis and septic arthritis Antonio is here for worsenin g his R food seems like infected. Swollen and more pain at his R little toe. No fevers or chills. No night sweats. No nausea, vomiting, diarrhea, constipation, abdominal pain. Appetite OK. Has had a poorly healing ulcer for ~1 year followed w Elizabeth Ocampo. Unclear what caused the unlcer to develop at first, was on a pressure point on his foot which had rubbed wiht his shoes. Pt reports he is not diabetic. Medical History: Reviewed Medications: Reviewed. Has not taken any medications today. 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 Was previously on allopurinol, has not taken recently. Takes indicin PRN for flares, last flare was ~1 month ago and lasted 1-2 days. Surgical History: Reviewed Allergies: Reviewed, updated. HIVES to azithro/sulfa. Social History: NO tobacco products, no EtoH, no medical marijuana, no recreational drugs. Code Status: FULL CODE Admission Exam Per Admitting Provider General: A&Ox3. NAD. Cooperative. HEENT: Atraumatic, normocephalic. Visual acuity and hearing grossly intact Pulm: CTAB A&P. -wheezes, -rales, -rhonchi. Symmetrical chest rise. No increase work of breathing. No respiratory distress. Cardiac: RRR, -mrg. Radial pulses intact and symmetrical. Abdominal: Nontender, nondistended, soft. BS present. Extremities: [employer] strength and sensation to soft touch in hands intact and symmetrical. Right foot with lateral 5th MCP ulceration with some purulence and discharge, pain is induced in right lateral forefoot on 5th digit resisted flexion and extension. Erythema of the right lateral foot extending to the ankle and midline foot. Cap refill brisk bilaterally. Left foot without ulcerations. PT pulse intact and symmetrical bilaterally. Principal Diagnosis Osteomyelitis R foot, Group B Strep Discharge Exam General Appearance: WD/WN in NAD who is A&O x 3 HEENT: Head is normocephalic/atraumatic; Hearing grossly intact; Mucous membranes moist Neck: Supple; Trachea midline; Neg JVD Heart: RRR with no M/G/R Lungs: CTA in all lung kline bilaterally; Respirations unlabored; Neg accessory muscle use, faint bibasilar crackles Abdomen: Soft, non-tender, non-distended; Positive BS x 4 quadrants Extremities: Neg cyanosis Neurological: Speech clear; Gross motor/sensory function intact; Neg focal neurologic deficits Psychiatric: Appropriate mood/affect Skin/MSK -- dressing to RLE c/d/i. NVI, pulses palpable bilaterally PT. cap refill <3 seconds toenails with chronic thickening/yellowing Discharge Data Allergies Allergy/AdvReac Type Severity Reaction Status Date / Time azithromycin Allergy Intermediate HIVES Verified 02/04/21 15:10 Sulfa (Sulfonamide Allergy Intermediate HIVES Verified 02/04/21 15:10 Antibiotics) Consultations 02/04/21 15:00 ED Decision to Admit Stat 02/04/21 19:36 Consult Orthopedic Surgery Routine 02/08/21 14:09 Consult Infectious Diseases Routine Procedures Performed Operation Date: 02/06/21 09:00 Actual Procedures p Right foor excisional arthroplasty fifth metatarsophalangeal joint. Tenosynovectomy fifth flexor and extensor, evacuation abscess right foot, and debridement of ulcer(Right) - Vikas Dobbins DO Ordered Studies Done day prior to his admission was an MR RT foot w/o con MR foot RT w/o con HISTORY: Right fifth digit ulcer and wound. Follow-up R FOOT R/O OSTEOMYELITIS TECHNIQUE: Multiplanar multisequence MRI of the right forefoot was performed without intravenous contrast. COMPARISON STUDY: Right forefoot MRI 06/10/2020. FINDINGS: Extensive subcutaneous edema seen throughout the forefoot. Diffuse marrow signal abnormality within the fifth metatarsal and proximal fundus of the right fifth toe. There is associated cortical erosion at the base of the fifth proximal phalanx and fifth metatarsal head consistent with an osteomyelitis. There is a loculated fluid collection/joint effusion at the fifth MTP joint measuring approximately 26 x 17 x 11 mm. This results in dorsal subluxation of the fifth toe relation to the metatarsal head. This is consistent with an abscess/septic arthritis. Patchy areas of marrow edema within the tarsal bones remain unchanged and may be due to long-standing degenerative change. There is also moderate osteoarthritis at the first MTP joint which is unchanged. There is edema within the dorsal and plantar muscles of the foot which raises the possibility of extension of the suspected infection. IMPRESSION: 1. Interval partial destruction at the head of the fifth metatarsal and base of the fifth toe proximal phalanx consistent with an osteomyelitis. 2. There is also a 26 x 17 x 11 mm loculated fluid collections/joint effusion at the fifth MTP joint. This is consistent with an abscess/septic arthritis. Surgical consultation recommended. 3. Subcutaneous edema seen throughout the foot which could be secondary to a cellulitis. 4. There is also edema seen within the dorsal and plantar muscles of the foot which could represent extension of the suspected infection. 5. These findings were called/faxed to the referring physician following dictation. ACT 112: Negative or not required by law. Electronically signed by: Julius Lawrence M.D. 02/04/2021 10:17 AM Dictated:02/04/21 100 Transcribed: 02/04/21 100 Hospital Course (1) Acute osteomyelitis of right foot: Antonio Miller is a 45-year-old male with a chronic right lateral foot ulceration and wound over the last year which has acutely worsened and who has evidence of osteomyelitis and septic arthritis on MRI. No hx PAD, smoking. Is pre-DM. MRI:Interval partial destruction at the head of the fifth metatarsal and base of the fifth toe proximal phalanx consistent with an osteomyelitis. There is also a 26 x 17 x 11 mm loculated fluid collections/joint effusion at the fifth MTP joint. This is consistent with an abscess/septic arthritis. Surgical consultation recommended. Subcutaneous edema seen throughout the foot which could be secondary to a cellulitis. There is also edema seen within the dorsal and plantar muscles of the foot which could represent extension of the suspected infection. CRP 6.07 on admission; afebrile OR 02/[address] Dobbins s/p: 1. Right foot fifth metatarsal phalangeal joint resection arthroplasty 2. Incision and drainage abscess right lateral forefoot 3. Tenosynovectomy septic extensor tendon 4. Tenosynovectomy septic flexor tendon 5. Irrigation debridement plantar fifth metatarsal head neuropathic ulcer 2.5 cm x 2.5 cm x 1.0 cm (right foot) Wound cx 02/04 with group B strep Wound cx from OR GROUP B STREP BCx NGTD On cefepime/dapto/flagyl initially however de-escalated to Ceftriaxone for narrowed coverage and this is to be continued x 6 weeks per ID consultation. Weekly labs. PICC line to RUE prior to d/c and home infusion company to meet next day for continued therapy WBC normal prior to d/c 10.5k Continue with DARCO boots provided/fitted by orthotics and is to be HEEL WB when transferring only. Given CM rx for wheelchair until wt bearing status/mobility improve and arranged for home health services. Follow up with orthopedics/wound care at d/c (2) Septic arthritis of right foot: cx pending abx as above (3) Cellulitis of right foot: improving -- see above (4) Hypertension: Continued losartan (5) Prediabetes: A1c - 6.2 ISS while inpatient Given infection and strong family hx encouraged dietary changes/close monitoring and follow up with PCP. Consideration for metformin given metabolic syndrome Heparin SQ while inpatient for DVT prophylaxis PICC line and to continue ceftriaxone x 6 weeks Weekly labs while on abx and alerted CM to have PCP follow labs Home health services arranged at d/c, rx for wheelchair provided as patient declined wanting to have inpatient rehab at d/c I certify that this patient is under my care and that I, or a physicians library media assistant working with me, had a face to-face encounter that meets the home health [id number] encounter requirements with this patient. The encounter with the patient was in whole, or in part, for the following medical condition, which is the primary reason for home health care (list medical condition): Nursing, PT; s/p Right foot osteo. I certify that, based on my findings, the following services are medically necessary home health services: My clinical findings support the need for the above services because: PT Assessment for Endurance / Balance / Strength PT Eval for Safety and Mobility PT Eval for Safety, Gait Training, Assistive Devices PT Gait and Balance Training, Strengthening and Safety Skilled Nsg Assessment Skilled Nsg Assessment Surgical Incision / Wound Skilled Nsg Instruction New Medications S/S to Report to Provider Vital Signs Weekly Labs Further, I certify that my clinical findings support that this patient is homebound (i.e. absences from home require considerable and taxing effort and are for medical reasons or roman catholic services or infrequently or of short duration when for other reasons) because: Assistance of 1 Person for Ambulation/Activities Supportive Aid - Walker Certification for Home Health Services: Based on the above findings, I certify that this patient is confined to the home and needs intermittent fci care, physical therapy and/or speech therapy or continues to need occupational therapy. The patient is under my care, and I have initiated the establishment of the plan of care. This patient will be followed by a physician who will periodically review the plan of care. Total Time Total Time Spent Total Time Spent (In Minutes): 60 Discharge Plan Discharge Items Patient Disposition: Home - Home Health Services Reason For Visit: FOOT OSTEO, SEPTIC ARTHRITIS, CELLULITIS Discharge Diagnosis: Osteomyelitis, Tenosynovitis, Group B Strep Condition on Discharge: Good Goals: You have been hospitalized for an urgent problem which required surgery. During your stay at [facility], we have made an effort to correct the problem that brought you to the hospital while keeping you as comfortable as possible. Surgery and medications were used to bring your condition under control and your discharge instructions will include directions for any medications you should take after leaving the hospital. Please make sure to follow the advice of your surgeon regarding follow up with the surgeon and with your primary care provider. Activity: As commented below Weightbearing Comment: NON-WEIGHT BEARING RIGHT FOOT EXCEPT HEEL BEARING WITH TRANSFER AND DARCO B Non-emergency contact: Primary Care Provider and Surgeon Call non-emergency contact if: you have any medication questions, your symptoms worsen, your pain is not controlled and you have a fever Follow-up/Referrals: Vikas Dobbins DO [Surgeon] - 02/15/21 8:30 am (1 week) Jesse Green DO [Primary Care Provider] - 02/17/21 8:00 am (APPT WITH DR TORO) Diet: Carb Consistent or DM2 and Heart Healthy Addtl Attending Provider Instructions: You have been hospitalized and found to have osteomyelitis of your right foot requiring surgery for removal of infected bone, tenosynovectomy and incision and debridement of an abscess. Cultures obtained showed group B strep as well as cultures from the OR. Your blood cultures remain negative. Infectious disease was consulted for antibiotic duration/choice and decision was made to utilize Ceftriaxone 2gm IV daily for 6 weeks. Home health has been arranged and they will arrive tomorrow to start home treatment. You already got your dose of antibiotics for the day. You had a PICC line (IV line) inserted. Please monitor for swelling/redness as discussed and alert PCP immediately or return to Er if this occurs. You have been sent a prescription for pain medications to utilize for breakthrough pain but can utilize Tylenol for all non-severe pain. Please note pain medications can cause constipation and you may use over the counter stool softeners or Miralax to help with bowels if this occurs. You will have weekly labs while on these medications to monitor your blood counts and electrolytes/kidney function. You have been provided rx for a wheelchair until mobility status improves. Home health has been arranged and you should have daily dressing changes. Please monitor for any fevers, increased redness, drainage, or for any other symptoms that are concerning for you and return to the emergency department. Please follow up with PCP in the next week to monitor your progress as well as Dr. Dobbins in one week. Please adhere to a heart healthy low carbohydrate diet. Your A1c level was elevated and you are considered "pre-diabetic". Given strong family history it is VERY important to control diet/exercise and lifestyle modifications to prevent this as this puts you at risk for other complications as well as poor wound healing/infections. It has been a pleasure being a part of the medical team providing for you while you have been in the hospital. Take care! Addtl Suspender Cutter Provider Instructions: ACTIVITY RECOMMENDATIONS: Limitations: Nonweightbearing on the affected side at all times. SPECIAL CARE INSTRUCTIONS: * Some drainage onto the dressing is normal and is no cause for alarm. * Some swelling is natural especially after walking. * When resting, keep your foot elevated above the level of your heart. * Call [facility] if you notice: -Increased drainage -Fever over 101 degrees F -Severe constant pain BANDAGE: *The dressing should be changed on a daily basis. Use dry gauze, gauze wrap, Adam bandage. PIN CARE: * Leave pins alone. * If pins come loose or fall out, notify physician. FOLLOW UP VISIT WITH DR. DOBBINS If appointment is not already scheduled: Please call [facility] after you get home today to schedule a follow-up appointment for [address] Dobbins at . Pending Studies at Discharge: Yes (Blood cultures -- no growth to date) Studies:: Blood cultures -- no growth to date. Prior Blood cultures NEGATIVE AFTER FIVE DAYS Stand-Alone Forms: My [facility], Opioid Pain Management Medications and DC Order Prescriptions: New oxycodone 5 mg Tablet 5 mg PO Q4H PRN (Reason: pain) Qty: 14 RF: 0 ceftriaxone 2 gram recon soln 2 g IV DAILY 42 Days Qty: 10 RF: 0 Continued indomethacin 25 mg capsule 25 mg PO TID PRN (Reason: gout) Qty: 30 RF: 0 losartan 25 mg tablet 25 mg PO DAILY Qty: 90 RF: 3 allopurinol 100 mg tablet 100 mg PO DAILY Qty: 30 RF: 2 Discharge Orders: Discharge Order (Routine); Ordered 02/10/21 Ordered By: Tami Corcoran Admission Data Admit Date/Time: 02/04/21 16:42 Attending Provider: Liliana Chowdhury Admit Provider: Naren Bianchi Primary Care Provider: Jesse Green Other Providers: Naren Bianchi ; Vikas Dobbins ; Brian Ansari ; Linda Slaughter ; Dominic Cooper I. ; Juan Francisco Hernandez II ; Stephanie Pisano ; Yeison Hoover ; Jason Graff ; [facility] Other Interventions: Discharge Summary Assessment (RN) Last Done: 02/10/21 14:56 Supervising Physician Co-Signing Physician Notes PA Supervision Note: I personally saw and examined the patient. I verified all lewis points and agree with HELEN Corcoran with the following exceptions and/or additions: S-patient feeling very well, no pain in the foot, denies chest pain or shortness of breath, no diarrhea. Eating and drinking well. Ready for discharge O- Vitals reviewed Gen: [AAOx3, NAD, obese HEENT: Anicteric sclerae, EOMI CV: RRR no mgr nl S1S2 Pulm: CTAB no wcr Abd: +BS soft NT ND no masses or hernias Ext: [Right foot and ankle in Adam wrap dressing not removed Skin: No rashes, warm/dry Neuro: [full strength throughout except not tested in right leg and ankle A/S-46-ibst-old male here with right foot osteomyelitis now status post surgical amputation debridement Stable for discharged home on prolonged IV antibiotics with weekly labs Coding Level of Care Code D/C DAY MANAGEMENT >30 MINS Diagnoses Acute osteomyelitis of right foot M86.171 Septic arthritis of right foot M00.9 Cellulitis of right foot L03.115 Hypertension I10 Prediabetes R73.03
[2021-02-10] MEDS ORDERED: allopurinoL 100 MG TAB PO SCH (09:00)
[2021-02-10] MEDS: DOCUSATE SODIUM/SENNA 50/8.6MG TAB PO SCH (09:31)
[2021-02-10] MEDS: LOSARTAN POTASSIUM 25 MG TAB PO SCH (09:32)
[2021-02-10] MEDS: POLYETHYLENE (MIRALAX) 17 GM PACK PO SCH (09:33)
[2021-02-10] MEDS: INSULIN ASPART 100 UNITS/ML 3 ML PEN SC SCH ×2 (09:36→13:10)
[2021-02-10] MEDS: cefTRIAXone SODIUM 2,000 MG in DEXTROSE 5% 50 ML IV SCH (09:49)
== END 2021-02-10 15:45 | disposition home health service (06) | DRG 464 ==
LOC: ED 11:14 → 3N 16:42 → SUATTDRO 16:42 → 3N 18:06